=== PATIENT | female | born 1960 | race Caucasian/White ===

== ENCOUNTER 2021-09-06 10:54 | Outpatient (REF) | payer OTHER, SELFPAY ==
--- NOTE | ~2021-09-06 | MM_ITS ---
EXAMINATION: MM SCREENING DIGITAL BREAST TOMOSYNTHESIS, BILATERAL CLINICAL INFORMATION: Screening. Asymptomatic. The lifetime risk of breast cancer based on the Tyrer-Cuzick Model is 6%. COMPARISON: Mammography: 08/31/2020, 08/26/2019, 08/11/2018, 08/07/2017 TECHNIQUE: Digital breast tomosynthesis is performed in both the craniocaudal and mediolateral oblique views along with computer-aided detection (CAD). Synthesized 2D images are generated from the tomosynthesis. FINDINGS: The breasts are heterogeneously dense, which may obscure small masses (ACR BI-RADS breast composition Category c). Parenchymal pattern is similar to prior studies. There is no interval mass or architectural abnormality or developing density. Minor asymmetries are stable. There are no abnormal calcifications. Sternalis muscle partly imaged in [id number] posterior medial left breast on CC projection is similar to 2017. The axilla and skin contours are unremarkable. MM/MM tomosynthesis screening BI IMPRESSION: No significant changes from prior studies. ASSESSMENT: BI-RADS 2: Benign RECOMMENDATION: Routine annual mammography screening. This patient's information was entered into a reminder system with a target due date for their next mammogram.
== END 2021-09-06 10:55 | disposition home or self-care (01) ==
LOC: HO.MAMMO 10:54
PROVIDERS: PCP Obstetrics & Gynecology; Visit Provider Obstetrics & Gynecology
DX: Z12.31 Encounter for screening mammogram for malignant neoplasm of breast (principal)
CPT/HCPCS: 77063; 77067

== ENCOUNTER 2022-09-13 12:01 | Outpatient (REF) | payer OTHER, SELFPAY ==
--- NOTE | ~2022-09-13 | MM_ITS ---
EXAMINATION: MM SCREENING DIGITAL BREAST TOMOSYNTHESIS, BILATERAL CLINICAL INFORMATION: Screening. Asymptomatic. The lifetime risk of breast cancer based on the Tyrer-Cuzick Model is 5.1%. COMPARISON: Mammography: September 06, 2021 and studies dating back to June 11, 2012 TECHNIQUE: Digital breast tomosynthesis is performed in both the craniocaudal and mediolateral oblique views along with computer-aided detection (CAD). Synthesized 2D images are generated from the tomosynthesis. FINDINGS: The breasts are heterogeneously dense, which may obscure small masses (ACR BI-RADS breast composition Category c). There are no new significant masses, abnormal calcifications, or other abnormalities. MM/MM tomosynthesis screening BI IMPRESSION: No significant changes from prior exam. ASSESSMENT: BI-RADS 1: Negative RECOMMENDATION: Routine annual mammography screening. This patient's information was entered into a reminder system with a target due date for their next mammogram.
== END 2022-09-13 12:02 | disposition home or self-care (01) ==
LOC: HO.MAMMO 12:01
PROVIDERS: Visit Provider Obstetrics & Gynecology
DX: Z12.31 Encounter for screening mammogram for malignant neoplasm of breast (principal)
CPT/HCPCS: 77063; 77067

== ENCOUNTER 2022-12-06 08:33 | Outpatient (REF) | payer OTHER, SELFPAY ==
[2022-12-06 11:21] LABS: MANUAL DIFF FLAG NO
[2022-12-06 11:41] LABS: Eosinophils Absolute Auto 0.1 X10*3/uL (0.0-0.4); Hematocrit 40.5 % (37.0-47.0); Hemoglobin 13.2 g/dl (12.0-16.0); Imm Gran Abs Auto 0.01 X10*3/uL (0.00-0.03); Imm Gran Pct Auto 0.2 % (0.0-0.4); Lymphocytes Absolute Auto 1.9 X10*3/uL (1.2-4.9); Lymphocytes Percent Auto 45.6 % (20-40); Mean Corpuscular HGB Conc 32.6 g/dl (31.0-35.0); Mean Corpuscular Hemoglobin 30.6 pg (27.0-33.0); Mean Platelet Volume 11.4 fL (9.4-12.3); Monocytes Absolute Auto 0.3 X10*3/uL (0.1-1.2); Monocytes Percent Auto 7.4 % (2-11); Neutrophils Absolute Auto 1.8 x10*3/uL (2.0-8.3); Neutrophils Percent Auto 43.8 % (45-73); Platelet Count 236 X10*3/uL (160-400); Red Blood Count 4.31 X10*6/uL (4.20-5.50); Red Cell Distribution Width 12.7 % (11.0-16.0); White Blood Count 4.1 X10*3/uL (4.8-10.8)
[2022-12-06 12:01] LABS: C Reactive Protein 0.06 mg/dL (< or = 0.50)
[2022-12-06 12:21] LABS: Alanine Aminotransferase 12 U/L (0-31); Albumin Level 4.4 g/dL (3.5-5.0); Alkaline Phosphatase 74 U/L (39-117); Anion Gap 13 (12-20); Aspartate Amino Transferase 13 U/L (5-31); Bilirubin Total 0.7 mg/dL (0.0-1.0); Blood Urea Nitrogen 15 mg/dL (9-16); Calcium 10.3 mg/dL (8.4-10.2); Carbon Dioxide 28 mmol/L (22-29); Chloride 107 mmol/L (96-108); Cholesterol 246 mg/dL; Estimated Glomerular Filt Rate > 60; Glucose Fasting 105 mg/dL (60-99); HDL Cholesterol 70 mg/dL; LDL Cholesterol Calculated 161 mg/dl; Potassium 4.8 mmol/L (3.3-5.1); Sodium 143 mmol/L (135-145); Total Protein 6.8 g/dL (6.5-8.0); Triglycerides 77 mg/dL
[2022-12-06 12:24] LABS: TSH reflex Free T4 3.37 uIU/mL (0.32-4.0)
[2022-12-06 12:29] LABS: Erythrocyte Sedimentation Rate 7 MM/HR (0-20)
== END 2022-12-06 08:34 | disposition home or self-care (01) ==
LOC: HO.HMGCLDS 08:33
PROVIDERS: Ophthalmology; PCP Internal Medicine; Visit Provider Internal Medicine
DX: Z00.01 Encounter for general adult medical examination with abnormal findings (principal); M85.88 Other specified disorders of bone density and structure, other site; H53.9 Unspecified visual disturbance
CPT/HCPCS: 36415; 80053; 80061; 82306; 84443; 85025; 85652; 86140

== ENCOUNTER 2022-12-17 13:42 | Outpatient (AMB) | payer OTHER, SELFPAY ==
--- NOTE | 2022-12-17 14:08 | A.OFFPC_ITS ---
Vital Signs 12/17/22 14:17 Height 5 ft 5 in Weight 126 lb BMI 20.9 BP 110/68 Blood Pressure Location Lt brachial Position Sitting Pulse 65 Pulse Source Pulse Oximeter Pulse Oximetry (%) 99 Oxygen Delivery Method Room Air Intake Visit Reasons: Anxiety Intake Note: Pt is here today c/o anxiety Allergies sulfamethoxazole [From Bactrim] Allergy (Severe, Verified 12/11/23 13:05) Unknown trimethoprim [From Bactrim] Allergy (Severe, Verified 12/11/23 13:05) Unknown Sulfa (Sulfonamide Antibiotics) [SULFA (SULFONAMIDE ANTIBIOTICS)] Allergy (Intermediate, Verified 12/11/23 13:05) SWELLING nitrofurantoin Adverse Reaction (Unknown, Verified 12/11/23 13:05) Unknown Medication List - Last Reconciled 12/17/22 by Lory Damon MD biotin 1 mg PO DAILY clonazepam 1 mg PO BEDTIME cyclosporine 0.05% 1 drp ophthalmic (eye) BID zolpidem 5 mg PO BEDTIME PRN Tobacco use date assessed: 12/17/22 HPI HPI Comments History of Present Illness Details 63-year-old lady here today complaining of worsening anxiety attacks, has not been able to sleep, feels on edge all the time and constantly worries about everything. She is currently taking clonazepam which has afforded only temporary relief. Zolpidem does not help anymore with sleep. Has been awake now for at least 3 days. [facility] Medical History (Updated 12/25/23 @ 00:20 by Lory Damon MD) History of orthostatic hypotension History of electroconvulsive therapy History of major depression Hypotension Generalized anxiety disorder Family history of melanoma Vision changes Osteopenia of lumbar spine History of uterine fibroid History of anxiety History of depression Surgical History Hx of colonoscopy History of vaginal hysterectomy Family History Father Cardiovascular disease Mother Melanoma, Onset Age: 81 Brother Mental health disorder Social History Household Members: None Housing: Apartment Patient Tobacco Use Status: Never used Tobacco e-Cigarette/Vaping Use: Never Used service: No Current occupational status: employed Cognitive needs: No Hearing needs: No Vision needs: Yes Questionnaire Thrive Questionnaire Date Thrive assessed: 12/05/22 DIAMOND-7 AMB Questionnaire DIAMOND-7 Date DIAMOND - 7 assessed: 12/17/22 Feeling nervous, anxious, or on edge: 3 = Nearly every day Not being able to stop or control worryin = Nearly every day Worrying too much about different things: 3 = Nearly every day Trouble relaxin = Nearly every day Being so restless that it is hard to sit still: 3 = Nearly every day Becoming easily annoyed or irritable: 0 = Not at all Feeling afraid as if something awful might happen: 3 = Nearly every day Total DIAMOND-7 score (0-4 normal; 5-9 mild; 10-14 moderate; 15-21 severe): 18 Source: Developed by Drs. Preet Conrad, Myriam Srinivasan, Salty Stanton and colleagues, with an educational robert from [employer]. DIAMOND-7 Assessment Billing DIAMOND-7 Assessment Tool: DIAMOND-7 Assessment 52877 Review of Systems Const Denies body aches, Denies fatigue, Denies fever(s), Denies headache(s), Denies malaise and Denies snoring Eyes Reports as per HPI ENT Denies dizziness, Denies headache(s) and Denies disequilibrium Card Denies chest pain, Denies syncope, Denies rapid heart rate, Denies irregular heart rhythm, Denies leg edema, Denies lightheadedness and Denies dyspnea Resp Denies cough, Denies dyspnea and Denies snoring GI Denies abdominal pain, Denies change in bowel habits, Denies change in stool character and Denies heartburn Reports no additional complaints Musc Reports no additional complaints Skin/Breast Denies rash Neuro Denies dizziness, Denies syncope, Denies headache(s), Denies seizure-like activity and Denies disequilibrium Psych Reports as per HPI Endo Reports no additional complaints and Denies fatigue Brent/Lymph Reports no additional complaints Aller/Immun Reports no additional complaints Physical exam (Primary Care) Vital Signs: Last Vital Signs Pulse 65 12/17/22 14:17 BP 110/68 12/17/22 14:17 Pulse Ox 99 12/17/22 14:17 Oxygen Delivery Method Room Air 12/17/22 14:17 BMI result Body Mass Index 20.9 Tobacco/Smoking Status: Tobacco use Status Tobacco use date assessed 12/17/22 12/17/22 14:10 Patient Tobacco Use Status Never used Tobacco 12/17/22 14:10 e-Cigarette/Vaping Use Never Used 12/17/22 14:10 Thrive Assessment: Date of Thrive Assessment Date Thrive assessed 12/05/22 12/17/22 14:10 Const General: comfortable, no acute distress, alert and awake Orientation/consciousness: patient oriented x3 HENMT Face and sinus: Yes face symmetric Mouth: moist mucous membranes Eyes General: appearance normal, both eyes and all related structures Neck Neck: Yes full ROM, Yes no lymphadenopathy and Yes supple Thyroid: Thyroid normal Chest Breast/axilla palpation: normal palpation of the breasts Resp Auscultation: clear to auscultation bilaterally Cardio Other: S1-S2 present, regular rate and rhythm GI Inspection: Yes normal to inspection Palpation (GI): Soft to palpation, nontender, no guarding and no masses Auscultation: normal bowel sounds General: Yes deferred Skin General skin exam: no rashes or lesions noted Neuro General: patient oriented x3, gait normal, tone normal, moves all extremities, Normal light touch and pain sensation, no focal motor deficits and CN's II-XI intact bilaterally Gait exam (Neuro): Normal gait present Extrem General: Yes full ROM, Yes no joint enlargement, Yes no clubbing, cyanosis or edema, Yes no calf tenderness and Yes normal gait Psych Appearance: grossly normal and well kempt Mental Status: mental status grossly normal Speech and movement: Normal speech and movement present Affect: Anxious affect present Attitude: cooperative Thought process: Normal thought process present Thought content: Normal thought content present Assessment and Plan Assessment & Plan (1) Generalized anxiety disorder: Code(s): F41.1 - Generalized anxiety disorder Plan: Started on buspirone 5 mg per tablet to take 1 tablet 3 times a day, prescriptio n also sent for trazodone 100 mg to take at bedtime as needed for insomnia, stop zolpidem and clonazepam. Referred to our [facility] for assistance in getting in to see a therapist and psychiatry. Schedule appointment for follow-up in 4 weeks Medications: New buspirone 5 mg PO TID 90 tabs 0RF F41.1 - Generalized anxiety disorder trazodone 100 mg PO BEDTIME PRN 14 tabs 0RF sleep Discontinued zolpidem Discontinued Reason: Doctor's Order 5 mg PO BEDTIME PRN 7 tabs 0RF sleep clonazepam administer 30 minutes before bedtime Discontinued Reason: Doctor's Order 1 mg PO BEDTIME 2 tabs 0RF Coding Level of Care Code Est Pt Level 3 (08822) Diagnoses Generalized anxiety disorder F41.1 Additional Codes DIAMOND-7 Assessment Billing - DIAMOND-7 Assessment Tool: DIAMOND-7 Assessment 03628 ([id number])
[2022-12-17 14:17] VITALS: BP 110/68; PULSE 65; O2SAT 99; BMI 20.9
== END 2022-12-17 15:22 | disposition home or self-care (01) ==
LOC: HO.HMGC 13:42
PROVIDERS: PCP Internal Medicine; Visit Provider Internal Medicine
DX: F41.1 Generalized anxiety disorder (principal)
CPT/HCPCS: 96127; 99213

== ENCOUNTER 2023-01-15 09:30 | Outpatient (RCR) | payer OTHER, SELFPAY ==
[2023-01-08 14:03] VITALS: BP 118/67; PULSE 72; TEMP 37.2
--- NOTE | 2023-01-08 14:03 | PC.ADMIT ---
Patient is a 62 year old single female who was referred to [facility] by her therapist d/t increased depression and anxiety sxs including poor appetite with weight loss of 10 lbs since the beginning of December and poor sleep. She has not been working since the onset of symptoms and fears she will lose her job. 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 Her mother and friend have been helping her financially and emotionally. Patient reports rumination thinking she will never get better and thinking the worse will happen. Worried she will lose everything. She stated she has not been on medication for 6 years. Recently went to respite and was prescribed medications. Stated her therapist is helping her get a prescriber and has an appointment for a consultation on January 25, 2023. Patient presented with depressed mood and anxious affect. She is oriented x4. Calm and cooperative. Denied SI or thoughts to harm herself. Patient given a copy of her safety plan if needed. Medications reconciled with patient and patient's pharmacy. Reports taking medications as prescribed.
[2023-01-08 14:06] VITALS: BMI 21.2
--- NOTE | 2023-01-08 15:22 | HO.PS.ADMBH ---
[facility] Date of Service: 01/08/23 Chief Complaint: depression, anxiety,OCD Sources of Information: patient interviewed, chart reviewed and crisis/core team assessment reviewed HPI Medical Problems Affecting Mental Status: No Narrative: Patient is a 62-year-old female, referred to [facility] by her outpatient therapist, due to increased symptoms of depression, anxiety, and insomnia, since late November 2022. Precipitant to this was experiencing unexpected blurry vision. She became extremely worried, went to the emergency room and eye doctor, with no clear explanation of symptoms. Was ultimately diagnosed with dry eye syndrome, and has been started with Restasis eye drops. She began to worry, which turned in to recurrence of depressive disorder, OCD, sleep disturbance. Reports passive SI, no intent or plan. Patient has been in this program in the past, in 2017. At that time she was found to have similar symptoms, after stressful life events. She was treated at that time with mirtazapine and lorazepam, with positive effect. She states that after discharge from here, she later was admitted to [facility] in [facility], and was then stable for 5 years. During that time she had weaned herself off of psychiatric medications, and had been doing well. She describes having years at a time where her mood is stable. 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 She says that every 5 or 6 years over the past 10 years or so she has had an episode with increased depression, OCD type symptoms, and insomnia. During these times she becomes consumed with worry and depression, days without sleep. Her current excessive worries focused on concerns about being ill, growing old, losing her job, losing her cats and department. Also reports recent intrusive sexual thoughts, describes them as repulsive. Patient was recently in respite through [facility], in [place], admitted on 12/25/22. She reports at that time she was having intrusive thoughts, described them as voices, due to excessive OCD symptoms. She also had insomnia, increased anxiety and depression. During that time she was placed on multiple medications, including Abilify, trazodone, BuSpar, Zoloft, Klonopin, quetiapine. She reports sleeping lessen 5 hours per night at this time. Waking up at 03:15 every morning. She currently has a friend staying with her, who is an RN. She describes friend, as well as her own mother as supportive. Her mother is currently helping her financially due to being unable to work while experiencing symptoms. Past Psychiatric History: [facility] in [address] [facility] 2017, SI attempt overdose with Tylenol, Aleve, Seroquel, Robitussin. Outpatient therapist: Johnny Trials: samson Warren not AH, mirtazapine, trazodone, BuSpar Medical Evaluation Reviewed: Yes PMFSH Medical History Family history of melanoma Generalized anxiety disorder History of anxiety History of depression History of uterine fibroid Osteopenia of lumbar spine Vision changes Surgical History History of vaginal hysterectomy Hx of colonoscopy Family History: Anxiety. Younger half-sibling: Schizophrenia Social History: Single, lives alone. 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 Parents when she was 7 or 8. Has 1 older brother. Father had 2 sons with 2nd marriage. Met developmental milestones, did well in school. Graduated college. Substance History: Occasional alcohol Trauma History: None Diagnostics Vital Signs (24Hr): Vital Signs - 24 hr 01/08/23 14:03 Temperature 98.9 F Pulse Rate 72 Blood Pressure 118/67 BMI result Body Mass Index 21.2 Meds/Allergies Meds Home Medications Medication Instructions Recorded Confirmed Type biotin 1 mg tablet 1 mg PO DAILY 12/05/22 01/08/23 History cyclosporine 0.05 % eye drops in a 1 drp ophthalmic (eye) BID 12/17/22 01/08/23 History dropperette clonazepam 1 mg tablet 1 mg PO BEDTIME 01/03/23 01/08/23 History Allergies Allergies Allergy/AdvReac Type Severity Reaction Status Date / Time Sulfa (Sulfonamide Allergy Intermediate SWELLING Verified 01/03/23 11:33 Antibiotics) [SULFA (SULFONAMIDE ANTIBIOTICS)] nitrofurantoin AdvReac Unknown Unknown Verified 01/03/23 11:33 Mental Status Exam Mental Status Exam Narrative: Well-developed, well-nourished female, in NAD. Normal ambulation, no cogwheeling or rigidity noted. Well groomed, appropriately dressed. Fully engaged during interview. No perceptual disturbances, no evidence of any type of psychotic thought process observed. Patient Appearance: Well Grooomed Patient Orientation: Person, Place, Time and Situation Level of Consciousness: Appropriate and Alert Patient Behavior: Appropriate, Cooperative, Anxious and Good Eye Contact Affect Description: Depressed and Anxious Patient Cognition Impaired: No Ability to Follow Directions: Excellent Speech Pattern: Clear Memory Description: Intact Hallucinations: None Delusions: Not Present Thought Process: Intact and Rumination Thought Content: positive for Obsessional Thoughts and positive for Suicidal Ideation (passive, no intent/plan) Depressive Symptoms: Increased Anxiety, Insomnia, Diff. Making Decisions, Loss of Int. in Activity, Increased Fatigue, Thoughts of /Suicide (passive) and Difficulty Concentrating Judgement: Fair Assessment & Plan Assessment & Plan (1) MDD (major depressive disorder), recurrent episode, severe: Status: Acute Code(s): F33.2 - Major depressive disorder, recurrent severe without psychotic features Assessment and Plan: Patient has had episodes in the past approximately every 5-6 years of supply fear depression, with exacerbation of OCD type anxiety symptoms. Has had trials of medications in the past, did well with mirtazapine and lorazepam while here in partial in 2017. Has a history of stopping medications once stable, with high functioning for years at a time. We discussed current medication regimen. Patient currently is receiving Abilify 15 mg daily, quetiapine 150 mg at bedtime, Klonopin 1 mg at bedtime, Zoloft 25 mg. She was started with trazodone recently, and stopped due to dry mouth. She also was started with BuSpar, but stopped taking it. Has also tried Ambien recently, stopped because ?it does not work ?. Reports intrusive thoughts have stopped, but continues with symptoms of depression, passive SI (no intent/plan, feels safe), OCD type thoughts, including intrusive sexual thoughts, excessive worry. Poor sleep continues, sleeping approximately 4-5 hours per night. We discussed making several medication changes. Discussed wean off of Abilify. Discussed changing quetiapine to long-acting. Discussed keeping Klonopin. Also discussed increasing Zoloft to 50 mg at this time. Discussion included rationale of each recommendation, indications, risks including both adverse effects serious and common, benefits, and alternatives of treatment recommendations. She demonstrated her understanding, and after asking appropriate questions that were answered to her satisfaction, she was agreeable to these changes. (2) OCD (obsessive compulsive disorder): Status: Acute Code(s): F42.9 - Obsessive-compulsive disorder, unspecified (3) Sleep disturbance: Status: Acute Code(s): G47.9 - Sleep disorder, unspecified Plan 1. Continue with current [facility] plan of care. 2. Medication changes as follows: Decrease aripiprazole to 10 mg daily x5 days, then decrease to 5 mg daily x5 days. Continue with clonazepam 1 mg at bedtime p.r.n. for sleep/anxiety. Add Melatonin 1-3mg at bedtime. Quetiapine changed to extended release 150mg, to be taken 3 hours prior to bedtime. Increase sertraline to 50mg daily. 3. Obtain lab work. 4. Follow-up as per protocol. Patient educated on: diagnosis, medication risk/benefits and therapeutic strategies Informed Consent: understands Reason for continued partial hosp. stay Substantial Risk for: harm to self, inability to function and rapid decompensation Certification I certify that partial hospital treatment is medically necessary due to the symptoms and problems resulting from the patient's mental illness and the failure to treat the patient at the partial hospital level of care would likely result in the patient requiring inpatient psychiatric care which could not be prevented at a less intensive level of care. Time Spent With Patient Time: Total time managing care of this patient today ___60_ minutes.
--- NOTE | 2023-01-11 07:58 | HO.PHP ---
The clients case was reviewed and opened in treatment team
--- NOTE | 2023-01-11 11:24 | P.PNPSP_ITS ---
Subjective Subjective Date of Service: 01/11/23 Reason For Visit: depression, anxiety,OCD Medical Problems Affecting Mental Status: No Interim History: Continues with anxiety, poor sleep, depression. Sleeping 4-5 hours per night. No SI reported, no safety concerns. Requesting leave paperwork to be completed and sent. Medication Compliance: Intermittent Side effects from medications: Yes (Says long-acting Seroquel causing nightmare type thoughts upon awakening.) Attending Groups: No Review of Systems Acute medical concerns: No Medical Review of Systems: unchanged Review of Systems Review of Systems Yes all other systems are reviewed and are negative Constitutional: Reports no additional constitutional complaints Mental Status Exam Mental Status Exam Patient Appearance: Appropriate Patient Orientation: Person, Place, Time and Situation Level of Consciousness: Appropriate and Alert Patient Behavior: Appropriate, Cooperative and Anxious Mood Description: Depressed and Anxious Affect Description: Depressed and Anxious Patient Cognition Impaired: No Ability to Follow Directions: Good Speech Pattern: Clear Memory Description: Intact Hallucinations: None Delusions: Not Present Thought Process: Intact and Rumination Thought Content: positive for Obsessional Thoughts Depressive Symptoms: Increased Anxiety, Insomnia, Diff. Making Decisions, Loss of Int. in Activity, Increased Fatigue and Difficulty Concentrating Judgement: Fair Diagnostics Vital Signs (24Hr): BMI result Body Mass Index 21.2 Assessment & Plan Assessment & Plan (1) MDD (major depressive disorder), recurrent episode, severe: Status: Acute Code(s): F33.2 - Major depressive disorder, recurrent severe without psychotic features Assessment and Plan: Continues with depressed, anxious mood affect. No SI at this time, no safety concerns. Continues focusing on sleep, lack of it. States that she is going to bed at 22:00, waking up between 03:15 and 04:15, unable to fall back asleep. Reports that she is sleeping approximately 4-5 hours per night, but that normally she sleeps 8 hours per night. Has taking the long-acting Seroquel for 2 nights, states that she does not like it, that when she wakens she has thoughts like nightmares. We discussed bedtime regimen. No caffeine past morning, no exercise at night, no cell phone use at night. Discussed having chamomile or sleepy time tea when she wakens between 3 and 04:00, and try to rest until morning. Reports she is taking Klonopin as prescribed at night, along with melatonin 3 mg. 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 Discussed continue with long-acting Seroquel at this time, to try for several more days over weekend. Discussed increase of melatonin to between 5 and 10 mg at night. Reviewed medications in detail, including side effects, indications of use, alternatives of treatment. 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 (4) Sleep disturbance: Status: Acute Code(s): G47.9 - Sleep disorder, unspecified Plan 1. Continue with current [facility] plan of care. 2. Continue with quetiapine 150 mg extended release. 3. Increase melatonin to 5-10 mg at night for sleep. 4. Continue with other medications as currently prescribed. 5. Unemployment/leave paperwork completed, fax, copy given to patient. 6. Follow up as per protocol Patient educated on: diagnosis, medication risk/benefits and therapeutic strategies Informed Consent: understands Reason for contiued partial hosp. stay Substantial Risk for: inability to function, rapid decompensation and med/psych decompensation Certification I certify that partial hospital treatment is medically necessary due to the symptoms and problems resulting from the patient's mental illness and the failure to treat the patient at the partial hospital level of care would likely result in the patient requiring inpatient psychiatric care which could not be prevented at a less intensive level of care. Total time managing care of this patient today _20___ minutes. Discharge Plan Discharge Attending provider: Matthew Chavez Medications: New aripiprazole 10 mg tablet 10 mg PO DAILY Qty: 5 0RF quetiapine 150 mg tablet extended release 24 hr 150 mg PO BEDTIME Qty: 7 0RF Rx Instructions: Take one tab 3 hours before bedtime sertraline 50 mg tablet 50 mg PO DAILY Qty: 7 0RF melatonin 1 mg tablet See Rx Instructions .ROUTE .COMPLEX PRN (Reason: sleep) Qty: 30 0RF Rx Instructions: Take 1 to 3 tabs at bedtime as needed for sleep aripiprazole 5 mg tablet 5 mg PO DAILY Qty: 5 0RF Rx Instructions: AFTER completion of aripiprazole 10mg daily for 5 days, START aripiprazole 5mg daily for 5 days. clonazepam 1 mg tablet 1 mg PO BEDTIME PRN (Reason: sleep) Qty: 14 0RF Rx Instructions: administer 30 minutes before bedtime Discontinued aripiprazole 15 mg tablet 15 mg PO DAILY quetiapine 100 mg tablet 150 mg PO BEDTIME sertraline 25 mg tablet 25 mg PO DAILY No Action biotin 1 mg tablet 1 mg PO DAILY cyclosporine 0.05 % dropperette 1 drp ophthalmic (eye) BID clonazepam 1 mg tablet 1 mg PO BEDTIME Stand Alone Forms: Patient Portal Discharge page
--- NOTE | 2023-01-14 13:54 | HO.PHPPROGNO ---
Subjective Subjective Date of Service: 01/14/23 Reason For Visit: depression, anxiety,OCD Medical Problems Affecting Mental Status: No Interim History: Continues with poor sleep. Reports slept 2 hours last night. Intrusive, racing thoughts continue, excessive worry. Continues with depression, anxiety. No SI, no safety concerns. Medication Compliance: Intermittent (Has been changing times of bedtime meds, with poor effect.) Side effects from medications: No Attending Groups: Yes Review of Systems Acute medical concerns: No Medical Review of Systems: unchanged Review of Systems Review of Systems Yes all other systems are reviewed and are negative Constitutional: Reports no additional constitutional complaints Mental Status Exam Mental Status Exam Patient Appearance: Appropriate Patient Orientation: Person, Place, Time and Situation Level of Consciousness: Appropriate and Alert Patient Behavior: Appropriate, Cooperative, Anxious and Good Eye Contact Mood Description: Depressed and Anxious Affect Description: Depressed, Anxious and Flat Patient Cognition Impaired: No Ability to Follow Directions: Good Speech Pattern: Clear Memory Description: Episodic Impaired Hallucinations: None Delusions: Not Present Thought Process: Rumination Thought Content: positive for Racing, positive for Obsessional Thoughts and positive for Preoccupation Depressive Symptoms: Increased Anxiety, Insomnia, Diff. Making Decisions, Loss of Int. in Activity, Hopelessness, Unhappiness, Increased Fatigue and Difficulty Concentrating Judgement: Fair Diagnostics Vital Signs (24Hr): BMI result Body Mass Index 21.2 Assessment & Plan Assessment & Plan (1) MDD (major depressive disorder), recurrent episode, severe: Status: Acute Code(s): F33.2 - Major depressive disorder, recurrent severe without psychotic features Assessment and Plan: Continues with depressed mood, intrusive / racing thoughts, poor sleep. Difficulty taking current medications as precisely prescribed. Change the times over the weekend for long-acting Seroquel. Reports only slept 2 hours last night. Indecisive at times, not sure if she should try med changes were continue with current regimen. She does not like the feel of Seroquel, reports that it makes her feel tired during the day. Although intrusive thoughts are troubling, they are not consistent with any type of thoughts of harm to self or others, but more OCD type in nature. No SI/HI, no safety concerns. We discussed symptom management, goals of treatment. Discussed lowering dose of quetiapine, increasing sertraline, continue to taper down Abilify, add doxepin, increase sertraline. Rationale for each recommendtion discussed, including indications, alternatives to treatment. After patient's questions were answered to her satisfaction, she was in agreement with the proposed changes. She also reports she did not take the increased recommendation of melatonin, and did not take the Seroquel 3 hours before bedtime. States that she will do these going forward, as the 1 day she did do so, she did have adequate sleep. Recommended EKG. Patient declined, states she does not feel comfortable going over to the hospital to get one, does not feel comfortable calling her doctor to get one. (2) OCD (obsessive compulsive disorder): Status: Acute Code(s): F42.9 - Obsessive-compulsive disorder, unspecified (3) Sleep disturbance: Status: Acute Code(s): G47.9 - Sleep disorder, unspecified Plan 1. Continue with current [facility] plan of care. 2. Decreased Seroquel extended release to 100mg at bedtime X one week, with plan to lower to 50mg at bedtime afterwards, with plan to either stop or continue at lower dose. 3. After completion of Abilify 5 mg daily, take Abilify 2 mg daily X 5 days, then discontinue. 4. Increase sertraline to 75 mg daily. 5. Start melatonin 5-10 mg at bedtime p.r.n. for sleep. 6. Stop trazodone 7. Start doxepin 3 mg at bedtime p.r.n. for sleep. 8. Follow-up as per protocol. Patient educated on: diagnosis, medication risk/benefits and therapeutic strategies Informed Consent: understands and further education needed Reason for contiued partial hosp. stay Substantial Risk for: inability to function and rapid decompensation Certification I certify that partial hospital treatment is medically necessary due to the symptoms and problems resulting from the patient's mental illness and the failure to treat the patient at the partial hospital level of care would likely result in the patient requiring inpatient psychiatric care which could not be prevented at a less intensive level of care. Total time managing care of this patient today __30__ minutes. Discharge Plan Discharge Attending provider: Matthew Chavez Medications: New aripiprazole 5 mg tablet 5 mg PO DAILY Qty: 5 0RF Rx Instructions: AFTER completion of aripiprazole 10mg daily for 5 days, START aripiprazole 5mg daily for 5 days. aripiprazole [Abilify] 2 mg tablet 2 mg PO DAILY Qty: 5 0RF Rx Instructions: AFTER completion of abilify 5mg X 5 days, then take abilfy 2mg X 5 days. Then discontinue quetiapine 50 mg tablet extended release 24 hr See Rx Instructions .ROUTE .COMPLEX Qty: 21 0RF Rx Instructions: 100 mg orally at bedtime X 7 days, THEN take 50mg orally at bedtime X 7 days. sertraline 50 mg tablet 75 mg PO DAILY Qty: 30 0RF melatonin 5 mg tablet See Rx Instructions .ROUTE .COMPLEX PRN (Reason: sleep) Qty: 60 0RF Rx Instructions: Take 5 to 10mg at night as needed for sleep doxepin 3 mg tablet 3 mg PO BEDTIME PRN (Reason: sleep) Qty: 7 0RF clonazepam 1 mg tablet 1 mg PO BEDTIME PRN (Reason: anxiety / sleep) Qty: 14 0RF Rx Instructions: administer 30 minutes before bedtime Discontinued clonazepam 1 mg tablet 1 mg PO BEDTIME aripiprazole 15 mg tablet 15 mg PO DAILY quetiapine 100 mg tablet 150 mg PO BEDTIME sertraline 25 mg tablet 25 mg PO DAILY No Action biotin 1 mg tablet 1 mg PO DAILY cyclosporine 0.05 % dropperette 1 drp ophthalmic (eye) BID Stand Alone Forms: Patient Portal Discharge page
--- NOTE | 2023-01-16 08:17 | PC.NURSE ---
Birgit called and left a message yesterday stating she will not be in the program as she is checking herself in the hospital. She is unsure which hospital yet but she feels she needs this level of care. A friend of hers is bringing her to the hospital. I called Birgit this morning to f/u. I left a message on her voicemail. [facility] staff is aware.
== END 2023-01-15 23:00 | disposition admitted as inpatient to this hospital (09) ==
LOC: HO.PHPA 09:30
PROVIDERS: Visit Provider Psychiatry & Neurology Psychiatry
DX: F33.2 Major depressive disorder, recurrent severe without psychotic features (principal); F41.1 Generalized anxiety disorder; F42.9 Obsessive-compulsive disorder, unspecified; G47.9 Sleep disorder, unspecified; Z79.899 Other long term (current) drug therapy
CPT/HCPCS: 90791; 90853

== ENCOUNTER → 2023-05-16 13:54 | Outpatient (BNVA) | payer OTHER, SELFPAY | PROVIDERS: Visit Provider Nurse Practitioner | DX: Z01.818 Encounter for other preprocedural examination (principal); I35.8 Other nonrheumatic aortic valve disorders; Z83.71 Family history of colonic polyps | CPT/HCPCS: 99202 ==

== ENCOUNTER 2023-09-19 11:45 | Outpatient (REF) | payer OTHER, SELFPAY ==
--- NOTE | ~2023-09-19 | MM_ITS ---
EXAMINATION: MM SCREENING DIGITAL BREAST TOMOSYNTHESIS, BILATERAL CLINICAL INFORMATION: Screening. Asymptomatic. COMPARISON: Mammography: 09/13/2022, 09/06/2021, 08/31/2020, 08/26/2019, 08/11/2018, 08/07/2017 TECHNIQUE: Digital breast tomosynthesis is performed in both the craniocaudal and mediolateral oblique views along with computer-aided detection (CAD). Synthesized 2D images are generated from the tomosynthesis. FINDINGS: The breasts are heterogeneously dense, which may obscure small masses (ACR BI-RADS breast composition Category c). There are no suspicious masses, suspicious grouped calcifications, or areas of architectural distortion in either breast. The parenchymal pattern is stable from prior exams. There are no skin or axillary changes. MM/MM tomosynthesis screening BI IMPRESSION: No mammographic evidence of malignancy. ASSESSMENT: BI-RADS BI-RADS 1 - Negative RECOMMENDATION: Routine annual mammography screening. 1 year F/U This examination should not preclude the clinical evaluation of a suspicious palpable abnormality. This patient's information was entered into a reminder system with a target due date for their next mammogram.
--- NOTE | ~2023-09-19 | MM_ITS ---
EXAMINATION: BONE DENSITOMETRY CLINICAL INDICATION: Osteopenia. COMPARISON: Baseline BD dated 06/07/2015. TECHNIQUE: Using a [employer] DXA System (software version: 13.1) manufactured by [employer], dual-energy x-ray absorptiometry was performed of the lumbar spine and left hip. The images are of good technical quality. Summary results are attached. FINDINGS: LEFT FEMUR, NECK: Current: BMD 0.856 g/cm2, Z-score 0.1, T-score -1.3, osteopenia. Baseline: BMD 0.988 g/cm2. LEFT FEMUR, TOTAL: Current: BMD 0.802 g/cm2, Z-score -0.5, T-score -1.6, osteopenia, 14.7% decrease from baseline (<5% change is not significant). Baseline: BMD 0.940 g/cm2. AP SPINE L1-L4: Current: BMD 0.939 g/cm2, Z-score -0.5, T-score -2.0, osteopenia, 9.0% decrease from baseline (<5% change is not significant). Baseline: BMD 1.032 g/cm2. IDENTIFIED RISK FACTORS: Menopause, hysterectomy. HISTORY OF FRACTURE: None listed. MEDICATIONS: Vitamin D. MM/XR DEXA axial skeleton IMPRESSION: 1. DIAGNOSIS: Osteopenia based on the lowest T-score value of -2.0 in the lumbar spine applying World Health Organization criteria. 2. 10-YEAR FRACTURE RISK PREDICTION, FRAX: Major osteoporotic fracture (clinical spine, forearm, hip or shoulder) 7.4%. Hip fracture 0.6%. 3. Treatment Recommendations: NOF guidelines recommend consideration for treatment in postmenopausal women and men age 50 and older presenting with the following: -A hip or vertebral (clinical or morphometric) fracture. -T-score less than or equal to -2.5 at the femoral neck or spine after appropriate evaluation to exclude secondary causes. -Low bone mass at the hip or spine and a 10-year fracture probability by FRAX of greater than or equal to 3% for hip fracture or greater than or equal to 20% for major osteoporotic fracture based on the [place] adapted WHO algorithm. 4. Other Recommendations: All treatment decisions require clinical judgment and consideration of individual patient factors, including patient preferences, comorbidities, previous drug use, risk factors not captured in the FRAX model (e.g. frailty, falls, vitamin D deficiency, increased bone turnover, interval significant decline in bone density) and possible under or overestimation of fracture risk by FRAX. Additional medical evaluation for secondary cause of low bone mineral density may be appropriate. FUTURE SCAN RECOMMENDATION: People with diagnosed cases of osteoporosis or at high risk for fracture should have regular bone mineral density tests. For patients eligible for Medicare, routine testing is allowed once every 2 years. The testing frequency can be increased to one year for patients who have rapidly progressing disease, those who are receiving or discontinuing medical therapy to restore bone mass, or have additional risk factors.
== END 2023-09-19 11:46 | disposition home or self-care (01) ==
LOC: HO.MAMMO 11:45
PROVIDERS: PCP Internal Medicine; Visit Provider Internal Medicine
DX: Z12.31 Encounter for screening mammogram for malignant neoplasm of breast (principal); Z13.820 Encounter for screening for osteoporosis; M85.88 Other specified disorders of bone density and structure, other site; Z78.0 Asymptomatic menopausal state
CPT/HCPCS: 77063; 77067; 77080

== ENCOUNTER → 2023-09-19 13:00 | Outpatient (BNV) | payer OTHER, SELFPAY | PROVIDERS: PCP Internal Medicine; Visit Provider Radiology Diagnostic Radiology | DX: Z12.31 Encounter for screening mammogram for malignant neoplasm of breast (principal) | CPT/HCPCS: 77063; 77067 ==

== ENCOUNTER 2023-10-03 09:45 | Outpatient (AMB) | payer OTHER, SELFPAY ==
[2023-10-03 09:49] VITALS: BP 100/64; PULSE 50; BMI 24.2
--- NOTE | 2023-10-03 09:49 | A.OFFVIS_ITS ---
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 Allergies sulfamethoxazole [From Bactrim] Allergy (Severe, Verified 05/16/23 14:02) Unknown trimethoprim [From Bactrim] Allergy (Severe, Verified 05/16/23 14:02) Unknown Sulfa (Sulfonamide Antibiotics) [SULFA (SULFONAMIDE ANTIBIOTICS)] Allergy (Intermediate, Verified 05/09/23 14:11) SWELLING nitrofurantoin Adverse Reaction (Unknown, Verified 05/09/23 13:55) Unknown Medication List - Last Reconciled 10/03/23 by Matthew Joe MD biotin 1 mg PO DAILY cholecalciferol (vitamin D3) 50 mcg PO DAILY multivitamin 1 tab PO DAILY thiamine HCl (vitamin B1) (Vitamin B-1) 100 mg PO DAILY HPI HPI Comments History of Present Illness Details Thank you for referring Birgit in cardiology consultation today for management of orthostatic hypotension. She is very cheerful 62-year-old woman who was admitted for 3 months for psych related issue and subsequently underwent ECT at [facility]. She was on lot of psychiatric medication at that point time she had significant low blood pressure and orthostatic symptoms. She was advised salt intake at that time. However she is not currently off all psychoactive medications and off salt intake and her symptoms have improved a blood pressures improved. 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 She does not tend to drink enough fluids in today. She also does not have enough salt. She denies any full syncopal episodes. [facility] Medical History Hypotension Generalized anxiety disorder Family history of melanoma Vision changes Osteopenia of lumbar spine History of uterine fibroid History of anxiety History of depression Surgical History Hx of colonoscopy History of vaginal hysterectomy Family History Father Cardiovascular disease Mother Melanoma, Onset Age: 81 Brother Mental health disorder Social History Household Members: None Housing: Apartment Patient Tobacco Use Status: Never used Tobacco e-Cigarette/Vaping Use: Never Used Current occupational status: employed Cognitive needs: No Hearing needs: No Vision needs: Yes Review of Systems Const Denies chills, Denies daytime sleepiness, Denies fatigue, Denies fever(s), Denies frequent falls, Denies poor appetite, Denies snoring, Denies stops breathing during sleep, Denies weakness, Denies weight gain and Denies weight loss Eyes Denies loss of vision ENT Denies dizziness and Denies hearing loss Card Denies chest pain, Denies claudication, Denies leg edema, Denies lightheadedness, Denies palpitations, Denies dyspnea, Denies dyspnea on exertion and Denies orthopnea Resp Denies cough, Denies excessive phlegm production, Denies dyspnea, Denies dyspnea on exertion, Denies snoring and Denies wheezing GI Denies abdominal pain, Denies hematochezia, Denies change in bowel habits, Denies nausea and Denies vomiting Denies urinary frequency and Denies dysuria Musc Denies arthralgias, Denies muscle weakness, Denies numbness and Denies other (frequent falls) Skin/Breast Denies nail changes and Denies rash Neuro Denies Abnormal speech present, Denies dizziness, Denies frequent falls, Denies loss of vision, Denies memory loss, Denies numbness and Denies weakness Psych Denies depression and Denies memory loss Endo Denies fatigue and Denies palpitations Brent/Lymph Reports easy bruising and Reports other (anemia) Aller/Immun Denies wheezing Physical Exam Vital Signs: Last Vital Signs Pulse 50 10/03/23 10:10 BP 92/61 10/03/23 10:10 BMI result Body Mass Index 24.2 Const General: cooperative, comfortable, no acute distress, alert, awake and Physically active Nutritional Appearance: thin Orientation/consciousness: patient oriented x3 Limitations: no limitations HEENT Head: Yes normocephalic and Yes atraumatic Neck Neck: Yes trachea midline, Yes supple and Yes no JVD Resp Effort & Inspection: normal respiratory effort Auscultation: clear to auscultation bilaterally Cardio Jugular venous distension: no JVD Palpation: normal PMI Rate: regular rate Rhythm: regular rhythm Heart sounds: S1 normal heart sound present, S2 normal heart sound present, no click, no gallops, no murmurs and no rubs GI Auscultation: normal bowel sounds Skin General skin exam: no rashes or lesions noted Neuro General: patient oriented x3 and no focal motor deficits Speech: No Abnormal speech present Extrem General: Yes no clubbing, cyanosis or edema Psych Appearance: grossly normal Office Procedures EKG Details: EKG shows sinus bradycardia 50 beats per minute otherwise normal EKG [id number], Complete Assessment & Plan Assessment & Plan (1) Hypotension: Code(s): I95.9 - Hypotension, unspecified Plan: Orthostatic hypertension related to psychoactive medication and optimal fluid and salt intake. She might have tendency for dysautonomia. However today she does not have any evidence of orthostatic hypertension. Advised to maintain adequate hydration and salt intake on a regular basis. Signs and symptoms of orthostatic hypertension and management of this was discussed. Orthostatic precautions discussed. She understands them well. In future if she require psychoactive medications, may require closer follow-up in regards to hypotension. Will sign of the case at this point time. Thank you for allowing me to partake in her care Coding Level of Care Code New Pt Level 3 (37907) Diagnoses Hypotension I95.9 CPT Codes EKG - CPT: 54539-[id number], Complete ([id number])
[2023-10-03 10:10] VITALS: BP 92/61; PULSE 50
[2023-10-03 10:13] VITALS: BP 102/71; PULSE 58
[2023-10-03 10:15] VITALS: BP 110/73; PULSE 67
== END 2023-10-03 10:29 | disposition home or self-care (01) ==
PROVIDERS: PCP Internal Medicine; Visit Provider Internal Medicine Cardiovascular Disease
DX: I95.9 Hypotension, unspecified (principal)
CPT/HCPCS: 93010; 99203

== ENCOUNTER → 2023-10-03 09:45 | Outpatient (BNVA) | payer OTHER, SELFPAY | PROVIDERS: PCP Internal Medicine; Visit Provider Internal Medicine Cardiovascular Disease | DX: I95.9 Hypotension, unspecified (principal) | CPT/HCPCS: 93005; 99202 ==

== ENCOUNTER 2023-12-11 12:41 | Outpatient (AMB) | payer OTHER, SELFPAY ==
--- NOTE | 2023-12-11 12:45 | A.OFFPC_ITS ---
Vital Signs 12/11/23 12:46 Weight 139 lb BP 118/76 Blood Pressure Location Rt brachial Position Sitting Pulse 70 Pulse Source Pulse Oximeter Pulse Oximetry (%) 98 Oxygen Delivery Method Room Air Intake Visit Reasons: Annual PE Intake Note: Patient here for physical exam. pt states she would like to get a referral to Derm. Colonoscopy is booked jan 10 Mammo: 08/2023 Allergies sulfamethoxazole [From Bactrim] Allergy (Severe, Verified 12/11/23 13:05) Unknown trimethoprim [From Bactrim] Allergy (Severe, Verified 12/11/23 13:05) Unknown Sulfa (Sulfonamide Antibiotics) [SULFA (SULFONAMIDE ANTIBIOTICS)] Allergy (Intermediate, Verified 12/11/23 13:05) SWELLING nitrofurantoin Adverse Reaction (Unknown, Verified 12/11/23 13:05) Unknown Medication List - Last Reconciled 12/11/23 by Lory Damon MD biotin 1 mg PO DAILY cholecalciferol (vitamin D3) 50 mcg PO DAILY multivitamin 1 tab PO DAILY thiamine HCl (vitamin B1) (Vitamin B-1) 100 mg PO DAILY Tobacco use date assessed: 12/11/23 Dental Screening Dental Screen Date: 12/11/23 Did you have a dental visit in the last 12 months?: Yes Did you have a dental problem in the last 6 months where you did not have access to dental care?: No Was dental information given to patient?: Patient has dentist HPI Annual PE HPI Details 63-year-old lady here today for physical exam. She has history of depression and anxiety with panic attacks and obsessive compulsive disorder, was [facility] months last year and was on multiple psychoactive medications which has not afforded any improvement and and she also developed orthostatic hypotension. She underwent ECT March 2023 with good results. 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 She is up-to-date with her screening mammogram, has osteopenia and multiple sites as noted on bone density done September 2023. She has an shayla ointment for her screening colonoscopy on 08/21/2024 already scheduled. She has been feeling well overall, with no other complaints at present time. [facility] Medical History (Updated 12/25/23 @ 00:20 by Lory Damon MD) History of orthostatic hypotension History of electroconvulsive therapy History of major depression Hypotension Generalized anxiety disorder Family history of melanoma Vision changes Osteopenia of lumbar spine History of uterine fibroid History of anxiety History of depression Surgical History Hx of colonoscopy History of vaginal hysterectomy Family History Father Cardiovascular disease Mother Melanoma, Onset Age: 81 Brother Mental health disorder Social History Household Members: None Housing: Apartment Patient Tobacco Use Status: Never used Tobacco e-Cigarette/Vaping Use: Never Used service: No Current occupational status: employed Cognitive needs: No Hearing needs: No Vision needs: Yes Questionnaire PHQ-9 Over the last 2 weeks, how often have you been bothered by any of the following problems? 1. Little interest or pleasure in doing things: not at all 2. Feeling down, depressed, or hopeless: not at all 3. Trouble falling or staying asleep, or sleeping too much: several days 4. Feeling tired or having little energy: not at all 5. Poor appetite or overeating: not at all 6. Feeling bad about yourself - or that you are a failure or have let yourself or your family down: not at all 7. Trouble concentrating on things, such as reading the newspaper or watching television: not at all 8. Moving or speaking so slowly that other people could have noticed. Or the opposite - being so fidgety or restless that you have been moving around a lot more than usual: not at all 9. Thoughts that you would be better off or of hurting yourself in some way: not at all Total score: 1 Depression Screening Interpretation: Negative Depression Screening Done: Yes 67006 - PHQ-9 Billing: Yes Source: Developed by Drs. Preet Conrad, Myriam Srinivasan, Salty Stanton and colleagues, with an educational robert from [employer]. Thrive Questionnaire Date Thrive assessed: 12/11/23 I am a: Patient What is your living situation today?: I have a steady place to live Within the past 12 months, did the food you bought not last and you didn't have the money to get more?: Never true Within the past 12 months, did you worry whether your food would run out before you got money to buy more?: Never true Do you have trouble paying for medicines?: No Do you have trouble getting transportation to medical appointments?: No Do you have trouble paying your heating and electricity bill?: No Do you have trouble taking care of your child, family member or friend?: No Do you have trouble with day-to-day activities such as bathing, preparing meals, shopping, managing finances, etc.?: No Are you currently unemployed and looking for a job?: No Are you interested in more education?: No Please select the resources that you would like help with: None Currently or been in a relationship where the following occur: no concerns reported AUDIT C Alcohol Use Questionnaire (AUDIT-C) 1. How often do you have a drink containing alcohol?: Never Total Score: 0 DIAMOND-7 AMB Questionnaire DIAMOND-7 Date DIAMOND - 7 assessed: 12/11/23 Feeling nervous, anxious, or on edge: 0 = Not at all Not being able to stop or control worryin = Several days Worrying too much about different things: 1 = Several days Trouble relaxin = Not at all Being so restless that it is hard to sit still: 0 = Not at all Becoming easily annoyed or irritable: 0 = Not at all Feeling afraid as if something awful might happen: 0 = Not at all Total DIAMOND-7 score (0-4 normal; 5-9 mild; 10-14 moderate; 15-21 severe): 2 Source: Developed by Drs. Preet Conrad, Myriam Srinivasan, Salty Stanton and colleagues, with an educational robert from [employer]. DIAMOND-7 Assessment Billing DIAMOND-7 Assessment Tool: DIAMOND-7 Assessment 28126 Review of Systems Const Denies chills, Denies daytime sleepiness, Denies fatigue, Denies fever(s) and Denies weakness Eyes Denies change in vision ENT Reports no additional complaints Card Denies chest pain, Denies claudication, Denies leg edema, Denies lightheadedness, Denies palpitations, Denies dyspnea and Denies dyspnea on exertion Resp Denies cough, Denies dyspnea, Denies dyspnea on exertion and Denies wheezing GI Denies abdominal pain, Denies change in bowel habits, Denies heartburn, Denies nausea and Denies vomiting Denies urinary frequency and Denies dysuria Musc Denies arthralgias, Denies muscle weakness and Denies numbness Skin/Breast Denies rash Neuro Denies memory loss, Denies numbness and Denies weakness Psych Denies depression and Denies memory loss Endo Denies fatigue, Denies polydipsia, Denies polyuria and Denies palpitations Brent/Lymph Reports easy bruising Aller/Immun Denies wheezing Physical exam (Primary Care) Vital Signs: Last Vital Signs Pulse 70 12/11/23 12:46 BP 118/76 12/11/23 12:46 Pulse Ox 98 12/11/23 12:46 Oxygen Delivery Method Room Air 12/11/23 12:46 Tobacco/Smoking Status: Tobacco use Status Tobacco use date assessed 12/11/23 12/11/23 12:52 Patient Tobacco Use Status Never used Tobacco 12/11/23 12:52 e-Cigarette/Vaping Use Never Used 12/11/23 12:52 PHQ-9: PHQ-9 Score PHQ-9: Total score 1 12/11/23 13:40 Depression Screening Interpretation: Negative Thrive Assessment: Date of Thrive Assessment Date Thrive assessed 12/11/23 12/11/23 13:40 Currently or been in a relationship where the following occur: no concerns reported Const General: healthy appearing, comfortable, no acute distress, alert and awake Orientation/consciousness: patient oriented x3 HENMT Face and sinus: Yes face symmetric Mouth: moist mucous membranes Eyes General: appearance normal, both eyes and all related structures Neck Neck: Yes full ROM, Yes no lymphadenopathy and Yes supple Thyroid: Thyroid normal Chest Breast/axilla palpation: normal palpation of the breasts Resp Auscultation: clear to auscultation bilaterally Cardio Other: S1-S2 present, regular rate and rhythm GI Inspection: Yes normal to inspection Palpation (GI): Soft to palpation, nontender, no guarding and no masses Auscultation: normal bowel sounds General: Yes no CVA tenderness and Yes deferred Back/Spine/Pelvis Back: no CVA tenderness and No back tenderness Skin General skin exam: no rashes or lesions noted Neuro General: patient oriented x3, gait normal, tone normal, moves all extremities, Normal light touch and pain sensation, no focal motor deficits and CN's II-XI intact bilaterally Gait exam (Neuro): Normal gait present Extrem General: Yes full ROM, Yes no joint enlargement, Yes no clubbing, cyanosis or edema, Yes no calf tenderness and Yes normal gait Psych Appearance: grossly normal and well kempt Mental Status: mental status grossly normal Speech and movement: Normal speech and movement present Affect: Anxious affect present Attitude: cooperative Thought process: Normal thought process present Thought content: Normal thought content present Assessment and Plan Assessment & Plan (1) Annual visit for general adult medical examination with abnormal findings: Code(s): Z00.01 - Encounter for general adult medical examination with abnormal findings Plan: Will check appropriate labs. Recommended dental visit every 6 months and regular eye exams, at least every 2 years. Take adequate calcium in diet and vitamin-D 3 at 2000 IU per cap once a day, in addition to weight-bearing exercises to help maintain good muscle tone and weight control. Instructed to do self-breast exam, and continue yearly mammogram, currently up-to-date. Will repeat another bone density scan in 2024. She has an appointment for screening colonoscopy next month already scheduled. Has had COVID vaccines in the past but does not want to get the booster, reminded to get her flu shot, and shingles vaccination, up-to-date with Tdap (2) History of major depression: Comment: Status post ECT March 2023 in [place] Code(s): Z86.59 - Personal history of other mental and behavioral disorders Plan: Improved with ECT, currently off psychiatric medications, and has been had any mood swings (3) OCD (obsessive compulsive disorder): Code(s): F42.9 - Obsessive-compulsive disorder, unspecified (4) Osteopenia of lumbar spine: Comment: Seen on bone density scan done 06/07/2015, with a T-score of -1.7 Code(s): M85.88 - Other specified disorders of bone density and structure, other site Plan: Advised to do regular weight-bearing exercise, take adequate calcium from dietary sources and continue taking vitamin-D 3 supplements at least 2000 units daily will repeat another bone density scan in 2024 (5) History of anxiety: Code(s): Z86.59 - Personal history of other mental and behavioral disorders Plan: Currently asymptomatic, improved with ECT (6) History of orthostatic hypotension: Comment: Due to psychoactive substances Code(s): Z86.79 - Personal history of other diseases of the circulatory system Plan: Has been seen and evaluated by Cardiology, advised to stay well-hydrated, avoid taking psychiatry medications Coding Level of Care Code Est Pt Prev Care 40-64y(02299) Diagnoses Annual visit for general adult medical examination with abnormal findings Z00.01 History of major depression Z86.59 OCD (obsessive compulsive disorder) F42.9 Osteopenia of lumbar spine M85.88 History of anxiety Z86.59 History of orthostatic hypotension Z86.79 Additional Codes DIAMOND-7 Assessment Billing - DIAMOND-7 Assessment Tool: DIAMOND-7 Assessment 32549 ([id number])
[2023-12-11 12:46] VITALS: BP 118/76; PULSE 70; O2SAT 98
== END 2023-12-11 13:18 | disposition home or self-care (01) ==
PROVIDERS: Visit Provider Internal Medicine
DX: Z00.00 Encounter for general adult medical examination without abnormal findings (principal); Z86.59 Personal history of other mental and behavioral disorders; F42.9 Obsessive-compulsive disorder, unspecified; M85.88 Other specified disorders of bone density and structure, other site; Z86.79 Personal history of other diseases of the circulatory system
CPT/HCPCS: 99396

== ENCOUNTER 2024-01-10 08:41 | Day surgery (SDC) | payer OTHER, SELFPAY ==
[2024-01-08 14:23] VITALS: BMI 22.5
--- NOTE | 2024-01-09 11:55 | HO.ANESPROP2 ---
HPI - Anesthesia Eval Consult details Narrative: 63yo F for Colonoscopy PMFSH Active Problems Active Problems: All Active Problems (Updated 12/25/23 @ 00:20 by Lory Damon MD) History of orthostatic hypotension (Acute) History of anxiety (Acute) History of major depression (Acute) Family history of polyps in the colon (Acute) OCD (obsessive compulsive disorder) (Acute) MDD (major depressive disorder), recurrent episode, severe (Acute) Family history of melanoma (Acute) Osteopenia of lumbar spine (Acute) Past Medical History Medical History (Updated 12/25/23 @ 00:20 by Lory Damon MD) History of orthostatic hypotension History of electroconvulsive therapy History of major depression Hypotension Generalized anxiety disorder Family history of melanoma Vision changes Osteopenia of lumbar spine History of uterine fibroid History of anxiety History of depression Family History Family History Father Cardiovascular disease Mother Melanoma, Onset Age: 81 Brother Mental health disorder Surgical History Surgical History Hx of colonoscopy History of vaginal hysterectomy Social History Social History Household Members: None Housing: Apartment Patient Tobacco Use Status: Never used Tobacco e-Cigarette/Vaping Use: Never Used service: No Current occupational status: employed Cognitive needs: No Hearing needs: No Vision needs: Yes Meds Allergies Allergy/AdvReac Type Severity Reaction Status Date / Time sulfamethoxazole Allergy Unknown Unknown Verified 01/08/24 14:13 [From Bactrim] trimethoprim [From Bactrim] Allergy Unknown Unknown Verified 01/08/24 14:13 nitrofurantoin AdvReac Unknown Unknown Verified 12/11/23 13:05 Home Medications Medication Instructions Recorded Confirmed Last Taken Type biotin 1 mg tablet 1 mg PO DAILY 12/05/22 01/08/24 Unknown History cholecalciferol (vitamin D3) 25 50 mcg PO DAILY 05/09/23 01/08/24 Unknown History mcg (1,000 unit) tablet thiamine HCl (vitamin B1) 100 mg 100 mg PO DAILY 05/09/23 01/08/24 Unknown History tablet (Vitamin B-1) multivitamin 1 tab PO DAILY 10/03/23 01/08/24 Unknown History Exam Height,Weight and Vital Signs: Height 5 ft 5 in Weight 61.235 kg Assessment and Plan Assessment Anesthesia Assessment: Chart Reviewed
[2024-01-10 08:55] VITALS: BMI 23.1
--- NOTE | 2024-01-10 09:13 | MHC.SHP ---
Pre-Procedural Eval Section A - 24 Hr Update-Section A only Date of Service: 01/10/24 The patient is an INPATIENT: No The patient has been examined within 24 hours of the surgical procedure. The History & Physical has been completed within 30 days and I have reviewed it.: No Section B - Complete if H&P > 30 days Chief Complaint: Colon cancer screening, FH of colon polyps Relevant Family History (Specify if Yes): Yes Relevant Social History: None Present Medications: see Short Stay Collaborative assessment Medical History: Significant History (History of anxiety History of depression History of uterine fibroid Hypotension Osteopenia of lumbar spine Vision changes) History of Previous Operations: Relevant previous surgery/procedure and date(s) (History of vaginal hysterectomy Hx of colonoscopy) Allergies: Allergies Allergy/AdvReac Type Severity Reaction Status Date / Time sulfamethoxazole Allergy Intermediate Rash Verified 01/10/24 08:58 [From Bactrim] trimethoprim [From Bactrim] Allergy Intermediate Rash Verified 01/10/24 08:58 nitrofurantoin AdvReac Intermediate Rash Verified 01/10/24 08:58 Review of Systems Sugical H&P ROS: Negative: Constitution, Cardiovascular, Respiratory and Gastrointestinal Exam Surgical H&P Exam: Normal: Heart, Normal: Lungs, Normal: Extremities and Normal: Abdomen Plan Diagnosis/Plan: Unchanged I have reviewed the history and physical and performed a pertinent physical examination on my patient. No changes have occurred unless specified. Time Spent With Patient Time: Total time managing care of this patient today ____ minutes.
--- NOTE | 2024-01-10 09:14 | HO.ANESPROP2 ---
[facility] Active Problems Active Problems: All Active Problems (Updated 12/25/23 @ 00:20 by Lory Damon MD) History of orthostatic hypotension (Acute) History of anxiety (Acute) History of major depression (Acute) Family history of polyps in the colon (Acute) OCD (obsessive compulsive disorder) (Acute) MDD (major depressive disorder), recurrent episode, severe (Acute) Family history of melanoma (Acute) Osteopenia of lumbar spine (Acute) Past Medical History Medical History History of orthostatic hypotension History of electroconvulsive therapy History of major depression Hypotension Generalized anxiety disorder Family history of melanoma Vision changes Osteopenia of lumbar spine History of uterine fibroid History of anxiety History of depression Functional capacity: independent ambulation Patient : No Family History Family History Father Cardiovascular disease Mother Melanoma, Onset Age: 81 Brother Mental health disorder Family history of problems with anesthesia: No Surgical History Surgical History Hx of colonoscopy History of vaginal hysterectomy History of Problems with Anesthesia: No Social History Social History Household Members: None Housing: Apartment Patient Tobacco Use Status: Never used Tobacco e-Cigarette/Vaping Use: Never Used service: No Current occupational status: employed Cognitive needs: No Hearing needs: No Vision needs: Yes Meds Allergies Allergy/AdvReac Type Severity Reaction Status Date / Time sulfamethoxazole Allergy Intermediate Rash Verified 01/10/24 08:58 [From Bactrim] trimethoprim [From Bactrim] Allergy Intermediate Rash Verified 01/10/24 08:58 nitrofurantoin AdvReac Intermediate Rash Verified 01/10/24 08:58 Active Medications: Current Medications Lactated Ringer's (Lr) 1,000 mls @ 100 mls/hr IVCONT .Q10H [facility] Home Medications Medication Instructions Recorded Confirmed Last Taken Type biotin 1 mg tablet 1 mg PO DAILY 12/05/22 01/08/24 Unknown History cholecalciferol (vitamin D3) 25 50 mcg PO DAILY 05/09/23 01/08/24 Unknown History mcg (1,000 unit) tablet thiamine HCl (vitamin B1) 100 mg 100 mg PO DAILY 05/09/23 01/08/24 Unknown History tablet (Vitamin B-1) multivitamin 1 tab PO DAILY 10/03/23 01/08/24 Unknown History Exam Height,Weight and Vital Signs: Height 5 ft 5 in Weight 63.106 kg Airway TM Dist: >3cm Neck ROM: Full Heart: RRR Lungs: CTA Assessment and Plan Assessment Anesthesia Assessment: Anesthesia Plan Discussed Final Anesthetic Review Family History of Problems with Anesthesia: No History of Problems with Anesthesia: No NPO: Yes ASA Class: II Final Preanesthetic Review: Meds/Allgs Chart Reviewed, Consent Obtained/Reviewed and Anes Risks/Benef Reviewed Patient Risk: Low Procedure Risk: Low Anesthetic Plan Anesthetic Plan: MAC: Disposition: Standard PACU
[2024-01-10 09:23] VITALS: BP 102/62; PULSE 53; RESP 16; TEMP 36.4; O2SAT 100
[2024-01-10] MEDS: Lactated Ringers 1,000 ML 100 ML IVCONT (09:24)
--- NOTE | 2024-01-10 09:51 | W.PM.OPN ---
Operative Note Operative Note Date of Service: 01/10/24 Narrative: COLONOSCOPY TILL CECUM WITH BIOPSIES, SNARE POLYPECTOMY, SUBMUCOSAL INJECTION AND HEMOCLIP PLACEMENT Pre-op diagnosis: Colon cancer screening, family history of colon polyps Post-op diagnosis:? Colon polyps, hemorrhoids Endoscopist:? Dallas Mtz MD Anesthesia:?MAC Consent: Indications for the procedure and potential complications of bleeding, perforation, reaction to medications and missed diagnosis were discussed with the patient and informed consent was obtained. Instrument: Olympus PCF H 190 L variable stiffness pediatric colonoscope Monitoring: Vital signs and clinical assessment, intermittent blood pressure monitoring, continuous EKG monitoring, Pulse oximetry and Carbon Dioxide monitoring were done throughout the procedure. Please see anesthesia flowsheet. Colon withdrawl time was 29 minutes. Procedure: The patient was placed in the left lateral decubitis position and pre-procedure medications were administered. After a digital rectal examination of the ano-rectum, the video colonoscope was inserted into the rectum and advanced through the colon to the cecum. The colonoscope was slowly withdrawn in a retrograde panoramic fashion and the colon mucosa was carefully examined including a retroflexed view of the rectum. Findings and interventions are described below. Procedure Difficulty: Colon was tortuous and there was some loop formation Findings: Terminal Ileum: Not evaluated Cecum: Normal Ascending Colon: A 15 to 18 mm flat polyp in the proximal AC at 60 cms. Polyp was raised with 2 cc of [place] and removed with a hot stiff snare. Polypectomy site was closed with 1 hemoclip and marked by Stacey ink Transverse Colon: Normal Descending Colon: Moderate diverticulosis Sigmoid Colon: A 4-5 mm diminutive appearing polyp - removed with a cold biopsy. Moderate diverticulosis Rectum: A 12 - 15 mm sessile polyp - removed with a hot snare. A 10 mm sessile polyp removed with a hot snare Ano-rectum: Normal Colon preparation: Good after some irrigation (pt stated she was only able to take half of her prep due to nausea and vomiting) [place] Bowel Preparation Scale Right colon; 2 Transverse colon: 3 Left colon; 3 (0 = Unprepared colon segment with mucosa not seen due to solid stool that cannot be cleared. 1 = Portion of mucosa of the colon segment seen, but other areas of the colon segment not well seen due to staining, residual stool and/or opaque liquid. 2 = Minor amount of residual staining, small fragments of stool and/or opaque liquid, but mucosa of colon segment seen well. 3 = Entire mucosa of colon segment seen well with no residual staining, small fragments of stool or opaque liquid) Impression and Post Procedure Diagnosis: Colonoscopy Findings: Three medium sized and one diminutive appearing polyps removed Moderate diverticulosis seen in the left colon Plan: Await pathology results Patient has an appointment on 01/22/24 in the [facility] with Meron Houston NP. Repeat Colonoscopy interval based on path results - in 3-5 years if polyps are adenomatous and 10 years if polyps are hyperplastic. (consider adding Dulcolax and using an alternate prep for future colonoscopies since pt had nausea and vomiting after drinking half of her prep) Above findings were reviewed with the patient and colon polyps and diverticulosis handouts were given in the discharge area
[2024-01-10 10:43] VITALS: BP 89/54; PULSE 65; RESP 16; TEMP 36.2; O2SAT 99
[2024-01-10 10:58] VITALS: BP 98/53; PULSE 52; RESP 16; TEMP 36.2; O2SAT 100
--- NOTE | 2024-01-10 14:06 | HO.POSTANES ---
Post Anesthesia Evaluation Post Anesthesia Evaluation Date of Service: 01/10/24 Vital Signs: Vital Signs Temp Pulse Resp BP Pulse Ox O2 Del Method 01/10/24 10:58 97.1 F 52 16 98/53 L 100 Room Air 01/10/24 10:43 97.1 F 65 16 89/54 L 99 Room Air 01/10/24 09:23 97.6 F 53 16 102/62 100 Room Air Anesthesia: Monitored Mental Status: Awake Pain Control: Satisfactory Nausea/Vomiting: None Hydration: Adequate Anesthesia-Related Issues: No Anes. Related Issues
== END 2024-01-10 11:20 | disposition home or self-care (01) ==
PROVIDERS: PCP Internal Medicine; Visit Provider Internal Medicine Gastroenterology
PROC: 0DJD8ZZ Inspection of Lower Intestinal Tract, Via Natural or Artificial Opening Endoscopic (ICD-10-PCS; CPT 45378; principal; 2024-01-10 09:50)
DX: Z12.11 Encounter for screening for malignant neoplasm of colon (principal); D12.2 Benign neoplasm of ascending colon; D12.8 Benign neoplasm of rectum; K56.2 Volvulus; K57.30 Diverticulosis of large intestine without perforation or abscess without bleeding; Z83.719 Family history of colon polyps, unspecified
CPT/HCPCS: 45385; 45380; 45381; 88305; J2704

== ENCOUNTER → 2024-01-10 08:41 | Outpatient (BNV) | payer OTHER, SELFPAY | PROVIDERS: PCP Internal Medicine; Visit Provider Internal Medicine Gastroenterology | DX: Z12.11 Encounter for screening for malignant neoplasm of colon (principal); Z83.719 Family history of colon polyps, unspecified; K63.5 Polyp of colon; K57.90 Diverticulosis of intestine, part unspecified, without perforation or abscess without bleeding | CPT/HCPCS: 45380; 45381; 45385 ==

== ENCOUNTER 2024-01-22 12:53 | Outpatient (AMB) | payer OTHER, SELFPAY ==
[2024-01-22 12:55] VITALS: BP 114/73; PULSE 72; BMI 22.9
--- NOTE | 2024-01-22 12:55 | A.OFFVIS_ITS ---
Intake Vital Signs 01/22/24 12:55 Height 5 ft 5 in Weight 137 lb 9.095 oz BMI 22.9 BP 114/73 Blood Pressure Location Rt brachial Position Sitting Pulse 72 Intake Visit Reasons: S/p colon Intake Note: Patient returns to office today in follow up s/p colonoscopy. CC: Patient reports she is taking fiber now and is able to have more BMs now. Allergies sulfamethoxazole [From Bactrim] Allergy (Intermediate, Verified 01/22/24 12:59) Rash trimethoprim [From Bactrim] Allergy (Intermediate, Verified 01/22/24 12:59) Rash Sulfa (Sulfonamide Antibiotics) Allergy (Unknown, Verified 01/22/24 12:59) Unknown nitrofurantoin Adverse Reaction (Intermediate, Verified 01/22/24 12:59) Rash HPI S/p colon HPI Details Assessment & Plan (1) Pre-op examination: Code(s): Z01.818 - Encounter for other preprocedural examination Plan: Her last colonoscopy was in 2011 and was negative. Her brother had polyps recently removed. No bowel or upper GI problems There are no prior problems with anesthesia or sedation. She denies any cardiac or respiratory problems. NO Id problems. Again, her brother recently had polyps removed. (2) Family history of polyps in the colo n: Comment: brother Code(s): Z83.71 - Family history of colonic polyps (3) Aortic heart murmur: Code(s): I35.8 - Other nonrheumatic aortic valve disorders Medications: New peg 3350-electroly michael 236-22.74-6.74 -5.86 gram (Golyt gwen) until feca l effluent is tracey r; do not exceed a total volume of 2 ,000 mL 240 mL PO Q10M 1 day 4,000 mL 0RF Z12.11 - Encounter for screening for malignant neoplas m of colon COLONOSCOPY 01/10/24 Findings: Terminal Ileum: Not evaluated Cecum: Normal Ascending Colon: A 15 to 18 mm flat polyp in the proximal AC at 60 cms. Polyp was raised with 2 cc of Eleview and removed with a hot stiff snare. Polypectomy site was closed with 1 hemoclip and marked by Stacey ink Transverse Colon: Normal Descending Colon: Moderate diverticulosis Sigmoid Colon: A 4-5 mm diminutive appearing polyp - removed with a cold biopsy. Moderate diverticulosis Rectum: A 12 - 15 mm sessile polyp - removed with a hot snare. A 10 mm sessile polyp removed with a hot snare Ano-rectum: Normal Colon preparation: Good after some irrigation (pt stated she was only able to take half of her prep due to nausea and vomiting) Impression and Post Procedure Diagnosis: Colonoscopy Findings: Three medium sized and one diminutive appearing polyps removed Moderate diverticulosis seen in the left colon Plan: Await pathology results Patient has an appointment on 01/22/24 in the GI Clinic with Meron Houston NP. Repeat Colonoscopy interval based on path results - in 3-5 years if polyps are adenomatous and 10 years if polyps are hyperplastic. (consider adding Dulcolax and using an a lternate prep for future colonoscopies since pt had nausea and vomiting after drinking half of her prep) BIOPSY Received: 01/10/24 Diagnosis A. Colon, ascending at 60 cm, polypectomy: Fragments of sessile serrated lesion/polyp; negative for cytologic dysplasia. B. Colon, sigmoid, polypectomy: Hyperplastic mucosal polyp. C. Rectum, polypectomies: Fragments of traditional serrated adenomata; negative for high-grade dysplasia or carcinoma. TODAY'S VISIT The procedure needs to be repeated in 3 years. She would like a split prep and procedure later in the day for the next procedure. The procedure was well tolerated. The results were explained and the patient is agreeable to the follow-up interval as stated. The bowel pattern has returned to normal. Education was provided to tell any 1st degree relatives about their findings to be sure that they are screened by age 45. Educated that they will be put on a recall list when it is time for their repeat scope but should they move out of state or away from the hospital they will need to remember along with their primary to repeat the procedure in a timely fashion to avoid any adverse complications. She tells me that her brother DID NOT have colon polyps. We will correct this in her chart. [facility]ocampos [facility] Medical History (Updated 01/22/24 @ 13:08 by OPHELIA Small) History of orthostatic hypotension History of electroconvulsive therapy History of major depression Hypotension Generalized anxiety disorder Family history of melanoma Vision changes Osteopenia of lumbar spine History of uterine fibroid History of anxiety History of depression Surgical History Hx of colonoscopy History of vaginal hysterectomy Family History Father Cardiovascular disease Mother Melanoma, Onset Age: 81 Brother Mental health disorder Social History Household Members: None Housing: Apartment Patient Tobacco Use Status: Never used Tobacco e-Cigarette/Vaping Use: Never Used service: No Current occupational status: employed Cognitive needs: No Hearing needs: No Vision needs: Yes Review of Systems Const Denies fatigue, Denies fever(s), Denies night sweats, Denies poor appetite and Denies weight loss ENT Reports Normal hearing present, Denies dental pain, Denies dysphagia, Denies hearing loss, Denies mouth pain, Denies odynophagia, Denies throat swelling, Denies tongue swelling and Reports other (Dentition adequate) Card Reports no additional complaints Resp Reports no additional complaints GI Details: Denies abdominal pain, Denies melena, Denies bloating, Denies hematochezia, Denies constipation, Denies GI cramping, Denies dysphagia, Denies excessive flatus, Denies early satiety, Denies heartburn, Denies diarrhea, Denies nausea, Denies odynophagia, Denies vomiting and Denies hematemesis Skin/Breast Denies pruritus, Denies lesions, Denies rash and Denies jaundice Neuro Reports Normal hearing present and Denies Abnormal speech present Endo Denies fatigue Aller/Immun Denies throat swelling and Denies tongue swelling Physical Exam Vital Signs: Last Vital Signs Pulse 72 01/22/24 12:55 BP 114/73 01/22/24 12:55 BMI result Body Mass Index 22.9 Const General: cooperative, no acute distress, well developed and well groomed Nutritional Appearance: average body habitus and well nourished Orientation/consciousness: oriented to person, oriented to place and oriented to time Limitations: No language barrier HEENT Head: Yes normocephalic and Yes atraumatic Eyes General: appearance normal, both eyes and all related structures Pupils: Equal, round and reactive pupils present Neck Neck: Yes normal visual inspection and Yes no lymphadenopathy Thyroid: Thyroid normal Resp Effort & Inspection: normal respiratory effort and able to speak in complete sentences Auscultation: clear to auscultation bilaterally Cardio Rate: regular rate Rhythm: regular rhythm Heart sounds: Normal, physiologic split S2 sound present Peripheral pulses: radial pulses present and posterior tibial pulses present GI Inspection: No distended and No Abdominal panniculus present Palpation (GI): Soft to palpation, nontender, no guarding, not rigid and No hepatosplenomegaly present Percussion: Yes normal to percussion Auscultation: normal bowel sounds Rectal Exam - Female: deferred Skin General skin exam: no rashes or lesions noted, turgor normal, skin not dry, no jaundice, No spider nevi and no striae Rashes: no rashes Nails: normal Neuro General: oriented to person, oriented to place and oriented to time Cranial nerves: Yes Equal, round and reactive pupils present and Yes Normal hearing present Speech: No Abnormal speech present Extrem General: Yes normal to inspection, No clubbing, No cyanosis and No edema Psych Appearance: grossly normal and well kempt Mental Status: mental status grossly normal Speech and movement: Normal speech and movement present Affect: normal affect Attitude: cooperative Thought process: Normal thought process present and not confabulating Thought content: Normal thought content present Insight: Fair insight present (Psych) Judgement: Fair judgement present (Psych) Assessment & Plan Assessment & Plan (1) Tubular adenoma of colon: Comment: TWO SESSILE SERRATED ADENOMAS 2023 SCOPE Code(s): D12.6 - Benign neoplasm of colon, unspecified Plan The procedure needs to be repeated in 3 years. She would like a split prep and procedure later in the day for the next procedure. The procedure was well to lerated. The results were explained and the patient is agreeable to the follow- up interval as stated. The bowel pattern has returned to normal. Education was provided to tell any 1st degree relatives about their findings to be sure that they are screened by age 45. Educated that they will be put on a recall list when it is time for their repeat scope but should they move out of state or away from the hospital they will need to remember along with their primary to repeat the procedure in a timely fashion to avoid any adverse complications. She tells me that her brother DID NOT have colon polyps. We will correct this in her chart. prn Coding Level of Care Code Est Pt Level 3 (66533) Diagnoses Tubular adenoma of colon D12.6
== END 2024-01-22 14:03 | disposition home or self-care (01) ==
PROVIDERS: PCP Internal Medicine; Visit Provider Nurse Practitioner
DX: D12.6 Benign neoplasm of colon, unspecified (principal)
CPT/HCPCS: 99213

== ENCOUNTER → 2024-01-22 12:53 | Outpatient (BNVA) | payer OTHER, SELFPAY | PROVIDERS: PCP Internal Medicine; Visit Provider Nurse Practitioner | DX: D12.6 Benign neoplasm of colon, unspecified (principal) | CPT/HCPCS: 99212 ==

== ENCOUNTER 2024-09-25 15:21 | Outpatient (REF) | payer OTHER, SELFPAY ==
--- NOTE | ~2024-09-25 | MM_ITS ---
EXAMINATION: MM SCREENING DIGITAL BREAST TOMOSYNTHESIS, BILATERAL CLINICAL INFORMATION: Screening. Asymptomatic. COMPARISON: Mammography: Comparison is made with available priors TECHNIQUE: Digital breast mammography with tomosynthesis is performed in both the craniocaudal and mediolateral oblique views along with computer-aided detection (CAD). FINDINGS: The breasts are heterogeneously dense, which may obscure small masses (ACR BI-RADS breast composition Category c). There are no significant masses, abnormal calcifications, or other abnormalities. MM/MM tomosynthesis screening BI IMPRESSION: No mammographic evidence of malignancy. ASSESSMENT: BI-RADS BI-RADS 1 - Negative RECOMMENDATION: Routine annual mammography screening. 1 year F/U This examination should not preclude the clinical evaluation of a suspicious palpable abnormality. This patient's information was entered into a reminder system with a target due date for their next mammogram. Electronically signed by: Jocelin Celis DO 10/05/2024 08:51 AM BREEZY
== END 2024-09-25 15:22 | disposition home or self-care (01) ==
LOC: HO.MAMMO 15:21
PROVIDERS: PCP Internal Medicine; Visit Provider Internal Medicine
DX: Z12.31 Encounter for screening mammogram for malignant neoplasm of breast (principal)
CPT/HCPCS: 77063; 77067

== ENCOUNTER → 2024-09-25 15:30 | Outpatient (BNV) | payer OTHER, SELFPAY | PROVIDERS: PCP Internal Medicine; Visit Provider Internal Medicine | DX: Z12.31 Encounter for screening mammogram for malignant neoplasm of breast (principal) | CPT/HCPCS: 77063; 77067 ==

== ENCOUNTER 2025-10-01 12:11 | Outpatient (REF) | payer OTHER, SELFPAY ==
--- NOTE | ~2025-10-01 | MM_ITS ---
EXAMINATION: MM SCREENING DIGITAL BREAST TOMOSYNTHESIS, BILATERAL CLINICAL INFORMATION: Screening. Asymptomatic. COMPARISON: Mammography: Comparison is made with available priors TECHNIQUE: Digital breast mammography with tomosynthesis is performed in both the craniocaudal and mediolateral oblique views along with computer-aided detection (CAD). FINDINGS: There are scattered areas of fibroglandular density. Asymmetry superior breast middle depth on MLO view. No suspicious calcifications or other abnormal findings. Left: There are no significant masses, abnormal calcifications, or other abnormalities. MM/MM tomosynthesis screening BI IMPRESSION: Additional imaging is recommended ASSESSMENT: BI-RADS Category 0: Incomplete - Need additional Imaging Evaluation RECOMMENDATION: 1. Additional views of the right breast. 2. Targeted ultrasound if warranted after review of the additional views. 3. Radiology department staff will contact the patient for additional imaging. Additional Imaging required Electronically signed by: Jocelin Celis DO 10/04/2025 11:45 AM BREEZY
--- OUTSIDE RECORDS SUMMARY | 2025-10-01 13:43 | XMS_ITS | Clinical Summary ---
Author Organization [facility] Address [address] [place] [address] Care Team Providers Care Supervisor Accounting Clerks Name Role Phone Lory Damon MD Primary Care Provider [phone] Allergies Active Allergy Reactions Criticality Noted Date Comments Sulfamethoxazole-Trimethoprim Hives 2022 Sulfa Antibiotics Hives 02/05/2023 Medications Medication Sig Dispensed Refills Start Date End Date Status sertraline (ZOLOFT) 100 MG tabletIndications:Gamaliel or Depressive Disorder Take 2 tablets (200 mg total) by mouth daily. 60 tablet 0 03/16/2023 Active Melatonin 10 MG TABSIndications:Insom tialia Take 10 mg by mouth every night at bedtime. 30 tablet 0 03/15/2023 Active clonazePAM (KlonoPIN) 0.5 MG tabletIndications:Anx iety Take 3 tablets (1.5 mg total) by mouth every night at bedtime. 14 tablet 0 03/15/2023 Active buPROPion (WELLBUTRIN XL) 150 MG 24 hr tabletIndications:Gamaliel or Depressive Disorder Take 1 tablet (150 mg total) by mouth daily. 30 tablet 0 03/16/2023 Active folic acid (FOLVITE) tablet 1 mgIndications:Folate Deficiency Anemia Take 1 tablet (1 mg total) by mouth daily. 30 tablet 0 03/16/2023 Active OLANZapine (ZyPREXA) 15 MG tabletIndications:Dep ressive Phase Bipolar Mood Disorder Take 1 tablet (15 mg total) by mouth every night at bedtime. 30 tablet 0 03/15/2023 Active senna (SENOKOT) 8.6 MG tabletIndications:Con stipation Take 1 tablet by mouth every night at bedtime. 14 tablet 0 03/15/2023 Active thiamine mononitrate (THIAMINE) 100 MG tabletIndications:Thi amine Deficiency Take 1 tablet (100 mg total) by mouth daily. 30 tablet 0 03/16/2023 Active Active Problems Problem Noted Date Diagnosed Date Mild cognitive impairment of uncertain or unknow n etiology 03/14/2023 Severe episode of recurrent major depressive disorder, without psychotic features 02/07/2023 Suicidal ideation 02/05/2023 Social History Tobacco Use Types Packs/Day Years Used Date Smoking Tobacco: Never Smokeless Tobacco: Never Alcohol Use Standard Drinks/Week Comments Not Currently 0 (1 standard drink = 0.6 oz pur e alcohol) Sex and Gender Information Value Date Recorded Sex Assigned at Female 02/04/2023 6:34 PM EST Gender Identity Not on file Sexual Orientation Not on file Job Start Date Occupation Industry Not on file Not on file Not on file Last Filed Vital Signs Vital Sign Reading Time Taken Comments Blood Pressure 96/63 03/15/2023 8:00 AM EDT Pulse 64 03/15/2023 8:00 AM EDT Temperature 36.4 C (97.5 F) 03/15/2023 8:00 AM EDT Respiratory Rate 18 03/15/2023 8:00 AM EDT Oxygen Saturation 95% 03/15/2023 8:00 AM EDT Inhaled Oxygen Concentration - - Weight 57.1 kg (125 lb 12.8 oz) 02/10/2023 7:53 AM EDT Height 165.1 cm (5' 5 ) 02/06/2023 1:00 PM EST Body Mass Index 20.93 02/06/2023 1:00 PM EST Plan of Treatment Health Maintenance Due Date Last Done Comments Hepatitis C Screening 1961 Depression Screening 1973 Preventative Health Evaluation 1979 Cervical Cancer Screening (Pap Smear) 1982 Colon Cancer Screening (Colonoscopy) 2006 DTap / Tdap / Td (1 - Tdap) 01/22/2008 01/21/2008 Breast Cancer Screening (Mammogram) 2011 Shingrix-Zoster Vaccine (1 o f 2) 2011 COVID-19 Vaccine (4 - 2024-2 6 season) 2025 01/29/2022, 03/27/2021, 03/03/2021 Influenza Vaccine (#1) 2025 RSV Adult > 60+ Yrs or (1 - 1-dose 75+ series) 2036 Hepatitis B Vaccines Aged Out No long er eligible based on patient's age to complete this topic Pneumococcal Vaccine Aged Out No long er eligible based on patient's age to complete this topic RSV Ped < 20 months Aged Out No longe r eligible based on patient's age to complete this topic Advance Directives For more information, please contact: [phone] Latest Code Status on File Code Status Date Activated Date Inactivated Comments Full Code 02/05/2023 12:51 PM 03/15/2023 5:32 PM This code status was ascertained in the following way: per unit protocol. Code Status History Code Status Date Activated Date Inactivated Comments Full Code 02/05/2023 12:51 PM 02/05/2023 12:51 PM Per u nit protocol Care Teams Supervisor Accounting Clerks Relationship Specialty Start Date End Date Lory Damon MD [address] [place] [address] PCP - General Internal Medicine 02/04/23
--- OUTSIDE RECORDS SUMMARY | 2025-10-01 13:43 | XMS_ITS ---
Author Name [facility] Unknown History of Medication Use Medication Directions Dispensed Refills Start Date End Date Stat us No known medications No known medications active Allergies Allergen Reaction Severity Comment Documented Date Source Statu s SULPHAMETHOXYDIAZINE RASH/DERMATITIS 03/15/2023 [facility] active Problems Problem Status Onset Date Problem Type Date of Resoluti on Source Dyspepsia active 2023-03-15 [facility] OCD (obsessive compulsive disorder) active 2023-03-15 ProblemAct [facility] DIAMOND (generalized anxiety disorder) active 2023-03-15 ProblemAct [facility] Severe episode of recurrent major depressive disorder, without psychotic features active 2023-03-15 ProblemAct [facility] Major depressive disorder with single episode active 2023-03-15 ProblemAct [facility] Immunizations Vaccine Date Source Lot Number Status Influenza Inactivated/Split Preservative Free IM 03/16/2023 [facility] completed Care Team Organization Name Specialty Phone Email Start Date End Da te [facility] 03/22/20232022 [facility]
--- OUTSIDE RECORDS SUMMARY | 2025-10-01 13:43 | XMS_ITS | Clinical Summary ---
Author Organization [facility] Address [address] [place] [address] Care Team Providers Care Sander And Polisher Name Role Phone Lory Damon MD Primary Care Provider [phone] Allergies Active Allergy Reactions Criticality Noted Date Comments Sulphamethoxydiazine Rash/Dermatitis High 03/15/2023 Medications * This document contains information received from the source organization and may not represent a complete record from that organization. cholecalciferol (CHOLECALCIFEROL ) 25 MCG (1000 UT) tabletIndication s:Severe episode of recurrent major depressive disorder, without psychotic features (HCC) Take 2 tablets (2,000 Units total) by mouth daily. 60 tablet 04/10/2023 Active folic acid (FOLVITE) 1 MG tabletIndication s:Severe episode of recurrent major depressive disorder, without psychotic features (HCC) Take 1 tablet (1 mg total) by mouth daily. 30 tablet 04/10/2023 Active melatonin 3 MG Tab tabletIndication s:Severe episode of recurrent major depressive disorder, without psychotic features (HCC) Take 1 tablet (3 mg total) by mouth nightly. 14 tablet 1 04/10/2023 Active mirtazapine (REMERON) 15 MG tabletIndication s:Severe episode of recurrent major depressive disorder, without psychotic features (HCC) Take 1 tablet (15 mg total) by mouth nightly. 14 tablet 1 04/10/2023 Active psyllium (METAMUCIL) 58.12 % Pack packetIndication s:Severe episode of recurrent major depressive disorder, without psychotic features (HCC) Take 1 packet by mouth daily. 30 packet 04/10/2023 Active risperiDONE (RisperDAL) 1 MG tabletIndication s:Severe episode of recurrent major depressive disorder, without psychotic features (HCC) Take 1 tablet (1 mg total) by mouth nightly. 14 tablet 1 04/10/2023 Active sertraline (ZOLOFT) 100 MG tabletIndication s:Severe episode of recurrent major depressive disorder, without psychotic features (HCC) Take 2 tablets (200 mg total) by mouth daily. 28 tablet 1 04/10/2023 Active sodium chloride 1 g tabletIndication s:Severe episode of recurrent major depressive disorder, without psychotic features (HCC) Take 1 tablet (1 g total) by mouth 2 (two) times a day with meals. 28 tablet 04/10/2023 Active thiamine mononitrate (VITAMIN B-1) 100 MG tabletIndication s:Severe episode of recurrent major depressive disorder, without psychotic features (HCC) Take 1 tablet (100 mg total) by mouth daily. 30 tablet 04/10/2023 Active fludrocortisone (FLORINEF) 0.1 MG tabletIndication s:Severe episode of recurrent major depressive disorder, without psychotic features (HCC) Take 2 tablets (0.2 mg total) by mouth daily. Do not start before April 11, 2023. 28 tablet 04/11/2023 Active Active Problems Problem Noted Date Diagnosed Date Major depressive disorder with single episode Dyspepsia 03/15/2023 Severe episode of recurrent major depressive disorder, without psychotic features 03/15/2023 OCD (obsessive compulsive disorder) 03/15/2023 DIAMOND (generalized anxiety disorder) 03/15/2023 Immunizations Immunization Administration Dates Next Due Influenza Inactivated/Split Preservative Free IM 04/10/2023(),03/16/2023(Deferred: - Did not get before admit/Doesn't want refused) Social History Tobacco Use Types Packs/Day Years Used Date Smoking Tobacco: Never Smokeless Tobacco: Never Tobacco Cessation:Counseling Given: No Alcohol Use Standard Drinks/Week Comments Never 0 (1 standard drink = 0.6 oz pur e alcohol) AUDIT-C Answer Date Recorded Q1: How often do you have a drink containing alcohol? Never 03/15/2023 Q2: How many drinks containi ng alcohol do you have on a typical day when you are drinking? Patient does not drink Q3: How often do you have si x or more drinks on one occasion? Never 03/15/2023 Comments Unknown Sex and Gender Information Value Date Recorded Sex Assigned at Female 03/18/2023 3:27 PM EDT Legal Sex Female 10:55 AM EDT Gender Identity Female 03/18/2023 3:27 PM EDT Sexual Orientation Not on file Last Filed Vital Signs Vital Sign Reading Time Taken Comments Blood Pressure 79/48 04/10/2023 1:20 PM EDT Pulse 68 04/10/2023 1:20 PM EDT Temperature 37.1 C (98.8 F) 04/10/2023 1:19 PM EDT Respiratory Rate 18 04/09/2023 6:13 PM EDT Oxygen Saturation 98% 03/31/2023 7:45 PM EDT Inhaled Oxygen Concentration - - Weight 58.1 kg (128 lb) 03/22/2023 12:09 PM EDT Height 165.1 cm (5' 5 ) 03/15/2023 4:06 PM EDT Body Mass Index 21.3 03/15/2023 4:06 PM EDT Plan of Treatment Health Maintenance Due Date Last Done Comments Hepatitis C Virus Screening 1961 HIV Screening 1974 DTaP/Tdap/Td Vaccines (1 - Tdap) 1980 Pap Smear (Ages 21-65) 1982 Mammogram 2001 Colonoscopy 2006 Pneumococcal Vaccines 50+ (1 of 1 - PCV) 2011 Zoster (Shingles) Vaccine (1 of 2) 2011 Influenza Vaccine 07/02/2025 COVID-19 Vaccine (4 - 2024-2 6 season) 2025 01/29/2022, 03/27/2021, 03/03/2021 RSV Vaccine 50 years and older and Patients (1 - 1-dose 75+ series) 2036 Hepatitis B Vaccines Aged Out No long er eligible based on patient's age to complete this topic Insurance [employer] Advance Directives * Full Code (Latest Code Status on File) Date Activated Date Inactivated Comments 03/15/2023 3:46 PM Question Answer Comments Decision Thoroughly Discussed with: Patient Care Teams Sander And Polisher Relationship Specialty Start Date End Date Lory Damon MD [address] [place] [address] PCP - General Internal Medicine 03/18/23
--- OUTSIDE RECORDS SUMMARY | 2025-10-01 13:43 | XMS_ITS | Clinical Summary ---
Author Organization [facility] Address [address] [place] [address] Care Team Providers Care Pin Drafter Operator Name Role Phone Lory Damon MD Primary Care Provider Surgical History Surgery Date Site/Laterality Comments PARTIAL HYSTERECTOMY PROCEDURE:PARTIAL HYSTERECTOMY Social History Tobacco Use Types Packs/Day Years Used Date Smoking Tobacco: Never Smokeless Tobacco: Never Alcohol Use Standard Drinks/Week Comments Not Currently 0 (1 standard drink = 0.6 oz pur e alcohol) Comments Unknown Sex and Gender Information Value Date Recorded Sex Assigned at Not on file Legal Sex Female 1:03 PM EST Gender Identity Not on file Sexual Orientation Not on file Obstetrics History Plan of Treatment Health Maintenance Due Date Last Done Comments Breast Cancer Screening 1961 Colorectal Cancer Screening: Colonoscopy 1961 DTaP,Tdap,and Td Vaccines (1 - Tdap) 1980 Cervical Cancer Screening: P ap Smear 1982 Pneumococcal Vaccine: 50+ Ye ars (1 of 1 - PCV) 2011 Zoster Vaccines (1 of 2) 2011 HIV Screening 10/30/2022 Hepatitis C Screening 10/30/2022 Social Influencers of Health Screening 10/30/2022 Depression Screening 12/02/2024 COVID-19 Vaccine (1 - 2023-2 5 season) 2025 Influenza Vaccine (#1) 2025 Cholesterol Screening (Lipid Panel) 02/05/2028 02/04/2023 RSV Immunization Adult Patie nts (1 - 1-dose 75+ series) 2036 HIB Vaccines Aged Out No longer eligi ble based on patient's age to complete this topic HPV Vaccines Aged Out No longer eligi ble based on patient's age to complete this topic Hepatitis A Vaccines Aged Out No long er eligible based on patient's age to complete this topic Hepatitis B Vaccines Aged Out No long er eligible based on patient's age to complete this topic IPV Vaccines Aged Out No longer eligi ble based on patient's age to complete this topic MMR Vaccines Aged Out No longer eligi ble based on patient's age to complete this topic Meningococcal ACWY Vaccine Aged Out N o longer eligible based on patient's age to complete this topic Meningococcal B Vaccine Aged Out No l onger eligible based on patient's age to complete this topic RSV Immunization Patients Un caroline 20 months Aged Out No longer eligible b ased on patient's age to complete this topic Varicella Vaccines Aged Out No longer eligible based on patient's age to complete this topic Care Teams Pin Drafter Operator Relationship Specialty Start Date End Date Lory Damon MD [address] [facility] [place] [address] PCP - General 02/04/23
== END 2025-10-01 12:12 | disposition home or self-care (01) ==
LOC: HO.MAMMO 12:11
PROVIDERS: PCP Internal Medicine; Visit Provider Internal Medicine
DX: Z12.31 Encounter for screening mammogram for malignant neoplasm of breast (principal)
CPT/HCPCS: 77063; 77067

== ENCOUNTER → 2025-10-01 12:30 | Outpatient (BNV) | payer OTHER, SELFPAY | PROVIDERS: PCP Internal Medicine; Visit Provider Internal Medicine | DX: Z12.31 Encounter for screening mammogram for malignant neoplasm of breast (principal) | CPT/HCPCS: 77063; 77067 ==

== ENCOUNTER 2025-10-12 10:53 | Outpatient (AMB) | payer OTHER, SELFPAY ==
--- NOTE | 2025-10-12 11:03 | A.OFFPC_ITS ---
Vital Signs 10/12/25 11:09 Height 5 ft 5 in Weight 136 lb BMI 22.6 BP 90/60 Blood Pressure Location Rt brachial Position Sitting Respiration 16 Pulse 62 Pulse Source Pulse Oximeter Temp 97.8 F Temp Source Oral Pulse Oximetry (%) 96 Oxygen Delivery Method Room Air Intake Visit Reasons: Annual PE Intake Note: Pt is here today for her PE: last mammogram 10/01/25, papsmear 01/07/19, colonoscopy 01/10/24 Monorail Hooker Required: No Allergies sulfamethoxazole (From Bactrim) Allergy (Intermediate, Verified 10/12/25 11:48) Rash trimethoprim (From Bactrim) Allergy (Intermediate, Verified 10/12/25 11:48) Rash Sulfa (Sulfonamide Antibiotics) Allergy (Unknown, Verified 10/12/25 11:48) Unknown nitrofurantoin Adverse Reaction (Intermediate, Verified 10/12/25 11:48) Rash Medication List - Last Reconciled 10/12/25 by Lory Damon MD biotin 1 mg PO DAILY Tobacco use date assessed: 10/12/25 Dental Screening Dental Screen Date: 10/12/25 Did you have a dental visit in the last 12 months?: Yes Did you have a dental problem in the last 6 months where you did not have access to dental care?: No Was dental information given to patient?: Patient has dentist HPI Annual PE HPI Details :The patient is a 64-year-old female presenting for a physical examination She had a recent colonoscopy done last year by Dr. Mtz, with precancerous polyps removed, prompting a recommendation for surveillance every three years. She denies any family history of colon cancer. The patient reported dizziness during the colonoscopy preparation and did not finish the prep solution. She has post-surgical menopause following a partial hysterectomy at age 53 for uterine fibroids, which caused severe bleeding and clotting. She has never been on hormone replacement therapy and currently experiences postmenopausal symptoms, including hot flashes. She is overdue for a gynecological exam as her previous provider retired, and her last Pap smear was in 01/07/2019. A bone density scan two years ago revealed osteopenia, noted to be in the left hip and thigh. She reports being inconsistent with vitamin D and not taking calcium supplements. She has no personal history of fractures. Regarding other health screenings, a mammogram 10/01/25 required a follow-up for additional views of the right breast , with no mass noted; an appointment is scheduled. She has a family history of melanoma and would like to be referred to see dermatology. She goes to [facility] ,sees Dr Cuevas with incipient cataracts noted , has Dry Eye syndrome , no macular degeneration Past laboratory results show a slightly elevated blood sugar of 105 and LDL cholesterol of 161 mg/dl. She reports a past episode of anxiety and depression, which she attributes to a lack of sleep, and states it is now resolved. For sleep, she has been taking [id number] melatonin gummies. In terms of immunizations, she received a flu shot today, has completed the shingles vaccine series, and is up-to-date on her tetanus shot, but she declines the COVID booster. [facility] Medical History (Updated 10/17/25 @ 22:45 by Lory Damon MD) Surgical menopause Osteopenia of multiple sites History of orthostatic hypotension History of electroconvulsive therapy History of major depression Hypotension Generalized anxiety disorder Family history of melanoma Vision changes Osteopenia of lumbar spine History of uterine fibroid History of anxiety History of depression Surgical History Hx of colonoscopy History of vaginal hysterectomy Family History Father Cardiovascular disease Mother Melanoma, Onset Age: 81 Brother Mental health disorder Social History Household Members: None Housing: Apartment Patient Tobacco Use Status: Never used Tobacco e-Cigarette/Vaping Use: Never Used service: No Current occupational status: employed Cognitive needs: No Hearing needs: No Vision needs: Yes Questionnaire PHQ-9 Over the last 2 weeks, how often have you been bothered by any of the following problems? 1. Little interest or pleasure in doing things: not at all 2. Feeling down, depressed, or hopeless: not at all 3. Trouble falling or staying asleep, or sleeping too much: not at all 4. Feeling tired or having little energy: not at all 5. Poor appetite or overeating: not at all 6. Feeling bad about yourself - or that you are a failure or have let yourself or your family down: not at all 7. Trouble concentrating on things, such as reading the newspaper or watching television: not at all 8. Moving or speaking so slowly that other people could have noticed. Or the opposite - being so fidgety or restless that you have been moving around a lot more than usual: not at all 9. Thoughts that you would be better off or of hurting yourself in some way: not at all Total score: 0 Depression Screening Interpretation: Negative Depression Screening Done: Yes 86992 - PHQ-9 Billing: Yes Source: Developed by Drs. Preet Conrad, Myriam Srinivasan, Salty Stanton and colleagues, with an educational robert from [employer]. Thrive Questionnaire Date Thrive assessed: 10/12/25 I am a: Patient What is your living situation today?: I have a steady place to live Within the past 12 months, did the food you bought not last and you didn't have the money to get more?: Never true Within the past 12 months, did you worry whether your food would run out before you got money to buy more?: Never true Do you have trouble paying for medicines?: No Do you have trouble getting transportation to medical appointments?: No Do you have trouble paying your heating and electricity bill?: No Do you have trouble taking care of your child, family member or friend?: No Do you have trouble with day-to-day activities such as bathing, preparing meals, shopping, managing finances, etc.?: No Are you currently unemployed and looking for a job?: No Are you interested in more education?: No Please select the resources that you would like help with: None Currently or been in a relationship where the following occur: No concerns reported THRIVE Score: 0 AUDIT C Alcohol Use Questionnaire (AUDIT-C) 1. How often do you have a drink containing alcohol?: 2-4 times a month 2. How many drinks containing alcohol do you have on a typical day when you are drinking?: 1 or 2 3. How often do you have six or more drinks on one occasion?: Never Total Score: 2 Score Reviewed/Action Taken: Yes DIAMOND-7 AMB Questionnaire DIAMOND-7 Date DIAMOND - 7 assessed: 10/12/25 Feeling nervous, anxious, or on edge: 0 = Not at all Not being able to stop or control worryin = Not at all Worrying too much about different things: 0 = Not at all Trouble relaxin = Not at all Being so restless that it is hard to sit still: 0 = Not at all Becoming easily annoyed or irritable: 0 = Not at all Feeling afraid as if something awful might happen: 0 = Not at all Total DIAMOND-7 score (0-4 normal; 5-9 mild; 10-14 moderate; 15-21 severe): 0 Source: Developed by Drs. Preet Conrad, Myriam Srinivasan, Salty Stanton and colleagues, with an educational robert from [employer]. DIAMOND-7 Assessment Billing DIAMOND-7 Assessment Tool: DIAMOND-7 Assessment 15357 Review of Systems Const Denies fatigue, Denies fever(s), Denies night sweats, Denies poor appetite and Denies weight loss Eyes Details: sees Aaron Mcghee at [facility] Reports requires corrective lenses ENT Reports Normal hearing present, Denies dental pain, Denies dysphagia, Denies hearing loss, Denies mouth pain, Denies odynophagia, Denies throat swelling, Denies tongue swelling and Reports other (Dentition adequate) Card Details: dental hygieneist Reports no additional complaints Resp Reports no additional complaints GI Details: Denies abdominal pain, Denies melena, Denies bloating, Denies hematochezia, Denies constipation, Denies GI cramping, Denies dysphagia, Denies excessive flatus, Denies early satiety, Denies heartburn, Denies diarrhea, Denies nausea, Denies odynophagia, Denies vomiting and Denies hematemesis Reports no additional complaints Musc Reports no additional complaints Skin/Breast Denies pruritus, Denies lesions, Denies rash and Denies jaundice Neuro Reports Normal hearing present and Denies Abnormal speech present Psych Reports no additional complaints Endo Denies fatigue Brent/Lymph Reports no additional complaints Aller/Immun Denies throat swelling and Denies tongue swelling Physical exam (Primary Care) Vital Signs: Last Vital Signs Temp 97.8 F 10/12/25 11:09 Pulse 62 10/12/25 11:09 Resp 16 10/12/25 11:09 BP 90/60 10/12/25 11:09 Pulse Ox 96 10/12/25 11:09 Oxygen Delivery Method Room Air 10/12/25 11:09 BMI result Body Mass Index 22.6 Tobacco/Smoking Status: Tobacco use Status Tobacco use date assessed 10/12/25 10/12/25 11:06 Patient Tobacco Use Status Never used Tobacco 10/12/25 11:06 e-Cigarette/Vaping Use Never Used 10/12/25 11:06 PHQ-9: PHQ-9 Score PHQ-9: Total score 0 10/12/25 12:02 Depression Screening Interpretation: Negative Thrive Assessment: Date of Thrive Assessment Date Thrive assessed 10/12/25 10/12/25 11:06 Currently or been in a relationship where the following occur: No concerns reported Advance Care Planning discussion: Completed/Scanned Date of discussion: 10/12/25 Who was present: patient Forms completed: Health Care Proxy Time spent: 16-45 minutes Actual minutes spent: 3 Const General: no acute distress and alert Orientation/consciousness: patient oriented x3 HENMT Face and sinus: Yes face symmetric Mouth: moist mucous membranes Eyes General: appearance normal, both eyes and all related structures Neck Neck: Yes full ROM, Yes no lymphadenopathy and Yes supple Thyroid: Thyroid normal Chest Breast/axilla palpation: normal palpation of the breasts Resp Auscultation: clear to auscultation bilaterally Cardio Other: S1-S2 present, regular rate and rhythm GI Inspection: Yes normal to inspection Palpation (GI): Soft to palpation, nontender, no guarding and no masses Auscultation: normal bowel sounds General: Yes no CVA tenderness and Yes deferred Back/Spine/Pelvis Back: no CVA tenderness and No back tenderness Skin General skin exam: no rashes or lesions noted Neuro General: patient oriented x3, gait normal, tone normal, moves all extremities, Normal light touch and pain sensation, no focal motor deficits and CN's II-XI intact bilaterally Cranial nerves: Yes Normal hearing present Speech: No Abnormal speech present Gait exam (Neuro): Normal gait present Extrem General: Yes full ROM, Yes no joint enlargement, Yes no clubbing, cyanosis or edema, Yes no calf tenderness and Yes normal gait Psych Appearance: grossly normal and well kempt Mental Status: mental status grossly normal Speech and movement: Normal speech and movement present Coding Level of Care Code Est Pt Prev Care 40-64y(20241) Diagnoses Annual visit for general adult medical examination with abnormal findings Z00.01 Cervical cancer screening Z12.4 Postmenopausal syndrome N95.1 Osteopenia of multiple sites M85.89 Advance directive discussed with patient Z71.89 Additional Codes DIAMOND-7 Assessment Billing - DIAMOND-7 Assessment Tool: DIAMOND-7 Assessment 42127 ([id number]) PHQ-9 - 91141 - PHQ-9 Billing: Yes ([id number]) Vital Signs *Quality* - Advance Care Planning discussion: Completed/Scanned ([id number]) Vital Signs *Quality* - Time spent: 16-45 minutes ([id number]) Assessment & Plan Assessment & Plan (1) Annual visit for general adult medical examination with abnormal findings: Code(s): Z00.01 - Encounter for general adult medical examination with abnormal findings Plan: Will check appropriate labs. Recommended dental visit every 6 months and regular eye exams, at least every 2 years. Take adequate calcium in diet and vitamin-D 3 at 2000 IU per cap once a day, in addition to weight-bearing exercises to help maintain good muscle tone and weight control. Instructed to do self-breast exam, and up-to-date with her screening mammogram , scheduled for additional views of right breast. Flu vaccine given today. Up-to-date with her screening colonoscopy (2) Cervical cancer screening: Code(s): Z12.4 - Encounter for screening for malignant neoplasm of cervix Plan: A referral will be placed for an MATERIAL ENGINEER visit at [facility] for a Pap smear and evaluation of postmenopausal symptoms; Dr. Reed was recommended. The patient was advised that it may take time to secure an appointment. (3) Postmenopausal syndrome: Code(s): N95.1 - Menopausal and female climacteric states Plan: A referral will be placed for an MATERIAL ENGINEER visit at [facility]INE[facility] for a Pap smear and evaluation of postmenopausal symptoms; Dr. Reed was rec ommended. The patient was advised that it may take time to secure an appointment. (4) Osteopenia of multiple sites: Code(s): M85.89 - Other specified disorders of bone density and structure, multiple sites Category: Medical Plan: A bone density scan has been ordered. The patient will call the imaging center to try and schedule it on the same day as her mammogram (November 22). She was counseled on the importance of consistent intake of calcium and vitamin D. (5) Advance directive discussed with patient: Code(s): Z71.89 - Other specified counseling Plan: Initiated the conversation about Advanced Directives. Advanced Directives help patients prepare for current and future decisions about their medical treatment and place of care. Discussed with patient that it is a process where a patients current condition and prognosis are reviewed, their wishes for information regarding their illness are elicited, and likely medical dilemmas are presented and options discussed. Healthcare proxy form completed today. The form can be amended as needed, reviewed yearly and make changes as needed Orders: Orders Lipid Panel 10/12/25 E89.40 - Asymptomatic postprocedural ovarian failure, M85.89 - Other specified disorders of bone density and structure, multiple sites, Z13.1 - Encounter for screening for diabetes mellitus, Z13.220 - Encounter for screening for lipoid disorders Basic Metabolic Panel Fasting 10/12/25 E89.40 - Asymptomatic postprocedural ovarian failure, M85.89 - Other specified disorders of bone density and structure, multiple sites, Z13.1 - Encounter for screening for diabetes mellitus, Z13.220 - Encounter for screening for lipoid disorders Aspartate Amino Transferase 10/12/25 E89.40 - Asymptomatic postprocedural ovarian failure, M85.89 - Other specified disorders of bone density and structure, multiple sites, Z13.1 - Encounter for screening for diabetes mellitus, Z13.220 - Encounter for screening for lipoid disorders Alanine Aminotransferase 10/12/25 E89.40 - Asymptomatic postprocedural ovarian failure, M85.89 - Other specified disorders of bone density and structure, multiple sites, Z13.1 - Encounter for screening for diabetes mellitus, Z13.220 - Encounter for screening for lipoid disorders Vitamin D 25-OH Total 10/12/25 E89.40 - Asymptomatic postprocedural ovarian failure, M85.89 - Other specified disorders of bone density and structure, multiple sites, Z13.1 - Encounter for screening for diabetes mellitus, Z13.220 - Encounter for screening for lipoid disorders Complete Blood Count Auto Diff 10/12/25 E89.40 - Asymptomatic postprocedural ovarian failure, M85.89 - Other specified disorders of bone density and structure, multiple sites, Z13.1 - Encounter for screening for diabetes mellitus, Z13.220 - Encounter for screening for lipoid disorders Influenza [id number] Immunization 10/12/25 Z23 - Encounter for immunization XR DEXA axial skeleton 10/12/25 E89.40 - Asymptomatic postprocedural ovarian failure, M85.89 - Other specified disorders of bone density and structure, multiple sites Referrals MATERIAL ENGINEER Referral E89.40 - Asymptomatic postprocedural ovarian failure, N95.1 - Menopausal and female climacteric states, Z12.4 - Encounter for screening for malignant neoplasm of cervix Medications: New Fluarix [id number] (PF) (flu vac ts (6mos up)-PF) 0.5 mL IM ONCE 0.5 mL 0RF NS Z23 - Encounter for immunization
[2025-10-12 11:09] VITALS: BP 90/60; PULSE 62; RESP 16; TEMP 36.6; O2SAT 96; BMI 22.6
--- OUTSIDE RECORDS SUMMARY | 2025-10-12 13:02 | XMS_ITS | Clinical Summary ---
Author Organization [facility] Address [address] [place] [address] Care Team Providers Care Hand Washer Name Role Phone Lory Damon MD Primary [...] Depression Screening 12/02/2024 COVID-19 Vaccine (1 - 2024-2 6 season) 2025 Influenza Vaccine (#1) 2025 Cholesterol [...] age to complete this topic Care Teams Hand Washer Relationship Specialty Start Date End Date Lory Damon MD [address] [place] [address] PCP - General 02/04/23
--- OUTSIDE RECORDS SUMMARY | 2025-10-12 13:02 | XMS_ITS | Clinical Summary ---
Author Organization [facility] Address [address] [place] [address] Care Team Providers Care Medicine And Health Service Manager Name Role Phone Lory Damon MD Primary Care Provider [phone]- [phone] Allergies Active Allergy Reactions Criticality Noted Date [...] Decision Thoroughly Discussed with: Patient Care Teams Medicine And Health Service Manager Relationship Specialty Start Date End Date Lory Damon MD [address] [place] [address] PCP - General Internal Medicine 03/18/23
== END 2025-10-12 12:21 | disposition home or self-care (01) ==
LOC: HO.HMCC 10:54
PROVIDERS: PCP Internal Medicine; Visit Provider Internal Medicine
DX: Z00.01 Encounter for general adult medical examination with abnormal findings (principal); Z12.4 Encounter for screening for malignant neoplasm of cervix; N95.1 Menopausal and female climacteric states; M85.89 Other specified disorders of bone density and structure, multiple sites; Z71.89 Other specified counseling

== ENCOUNTER → 2025-10-12 10:53 | Outpatient (BNVA) | payer OTHER, SELFPAY | PROVIDERS: PCP Internal Medicine; Visit Provider Internal Medicine | DX: Z00.01 Encounter for general adult medical examination with abnormal findings (principal); Z12.4 Encounter for screening for malignant neoplasm of cervix; Z71.89 Other specified counseling; N95.1 Menopausal and female climacteric states; M85.89 Other specified disorders of bone density and structure, multiple sites | CPT/HCPCS: 96127; 99396; 99497 ==

== ENCOUNTER 2025-11-01 10:21 | Outpatient (REF) | payer OTHER, SELFPAY ==
--- OUTSIDE RECORDS SUMMARY | 2025-11-01 12:56 | XMS_ITS | Clinical Summary ---
Author Organization [facility] Address [address] [place] [address] Care Team Providers Care Setter Up Name Role Phone Lory Damon MD Primary Care Provider [phone] Allergies Active Allergy Reactions Criticality Noted Date Comments Sulfamethoxazole-Trimethoprim Hives 2022 Sulfa Antibiotics Hives 02/05/2023 Medications Medication Sig Dispensed Refills Start Date End Date Status sertraline (ZOLOFT) 100 MG tabletIndications:Gamaliel or Depressive Disorder Take 2 tablets (200 mg total) by mouth daily. 60 tablet 0 03/16/2023 Active Melatonin 10 MG TABSIndications:Insom italia Take 10 mg by mouth every night [...] Advance Directives For more information, please contact: [phone] Latest Code Status on File Code Status Date Activated Date Inactivated Comments Full Code 02/05/2023 12:51 PM 03/15/2023 5:32 PM This code status was ascertained in the following way: per unit protocol. Code Status History Code Status Date Activated Date Inactivated Comments Full Code 02/05/2023 12:51 PM 02/05/2023 12:51 PM Per u nit protocol Care Teams Setter Up Relationship Specialty Start Date End Date Lory Damon MD [address] [place] [address] PCP - General Internal Medicine 02/04/23
--- OUTSIDE RECORDS SUMMARY | 2025-11-01 12:56 | XMS_ITS | Clinical Summary ---
Author Organization [facility] Address [address] [place] [address] Care Team Providers Care Handle Bar Assembler Name Role Phone Lory Damon MD Primary Care Provider [phone]- [phone] Allergies Active Allergy Reactions Criticality Noted Date [...] Decision Thoroughly Discussed with: Patient Care Teams Handle Bar Assembler Relationship Specialty Start Date End Date Lory Damon MD [address] [place] [address] PCP - General Internal Medicine 03/18/23
--- OUTSIDE RECORDS SUMMARY | 2025-11-01 12:56 | XMS_ITS | Clinical Summary ---
Author Organization [facility] Address [address] [place] [address] Care Team Providers Care Tufter Name Role Phone Lory Damon MD Primary [...] age to complete this topic Care Teams Tufter Relationship Specialty Start Date End Date Lory Damon MD [address] [facility] [place] [address] PCP - General 02/04/23
[2025-11-01 13:23] LABS: MANUAL DIFF FLAG NO
[2025-11-01 13:34] LABS: Hematocrit 39.4 % (37.0-47.0); Hemoglobin 13.0 g/dl (12.0-16.0); Imm Gran Abs Auto 0.01 X10*3/uL (0.00-0.03); Imm Gran Pct Auto 0.3 % (0.0-0.4); Lymphocytes Absolute Auto 1.5 X10*3/uL (1.2-4.9); Mean Corpuscular HGB Conc 33.0 g/dl (31.0-35.0); Mean Corpuscular Hemoglobin 30.6 pg (27.0-33.0); Mean Corpuscular Volume 92.7 fL (80.0-98.0); NRBC Abs Auto 0.000 X10*3/uL (0.0-0.012); NRBC Pct Auto 0.0 /100WBC (0.0-0.2); Platelet Count 211 X10*3/uL (160-400); Red Blood Count 4.25 X10*6/uL (4.20-5.50); White Blood Count 3.9 X10*3/uL (4.8-10.8)
[2025-11-01 14:10] LABS: Alanine Aminotransferase 15 U/L (0-31); Anion Gap 10 (12-20); Aspartate Amino Transferase 23 U/L (5-31); Blood Urea Nitrogen 16 mg/dL (9-16); Calcium 9.8 mg/dL (8.4-10.2); Carbon Dioxide 27 mmol/L (22-29); Chloride 108 mmol/L (96-108); Cholesterol 255 mg/dL (<200); Estimated Glomerular Filt Rate > 60; HDL Cholesterol 73 mg/dL (>40); Potassium 4.4 mmol/L (3.3-5.1); Sodium 141 mmol/L (135-145); Triglycerides 82 mg/dL (<150)
== END 2025-11-01 10:22 | disposition home or self-care (01) ==
LOC: HO.HMGCLDS 10:21
PROVIDERS: PCP Internal Medicine; Visit Provider Internal Medicine
DX: Z13.220 Encounter for screening for lipoid disorders (principal); Z13.1 Encounter for screening for diabetes mellitus; M85.89 Other specified disorders of bone density and structure, multiple sites; E89.40 Asymptomatic postprocedural ovarian failure
CPT/HCPCS: 36415; 80048; 80061; 82306; 84450; 84460; 85025

== ENCOUNTER → 2025-11-22 12:30 | Outpatient (BNV) | payer OTHER, SELFPAY | PROVIDERS: PCP Internal Medicine; Visit Provider Radiology Body Imaging | DX: R92.8 Other abnormal and inconclusive findings on diagnostic imaging of breast (principal) | CPT/HCPCS: 76642; 77061; 77065 ==

== ENCOUNTER 2025-11-22 12:35 | Outpatient (REF) | payer OTHER, SELFPAY ==
--- NOTE | ~2025-11-22 | US_ITS ---
EXAMINATION(S): 1. MM DIAGNOSTIC DIGITAL BREAST TOMOSYNTHESIS, RIGHT 2. TARGETED ULTRASOUND OF THE RIGHT BREAST CLINICAL INFORMATION: Callback from screening for right breast asymmetry in the superior breast middle depth on the MLO view. COMPARISON: Comparison made to multiple prior, most recent September 25, 2024, and most remote August 11, 2018. TECHNIQUE: Digital breast tomosynthesis is performed in full-field ML 90 degrees and MLO along with computer-aided detection (CAD). Synthesized 2D images are generated from the tomosynthesis. Spot compression tomosynthesis were obtained. FINDINGS: BREAST COMPOSITION: The breasts are heterogeneously dense, which may obscure small masses. RIGHT BREAST: Pliable asymmetry in the upper breast. On today's images, the local parenchyma has similar appearance to multiple prior studies as far back as 2017. Therefore, findings likely represented overlapping fibroglandular breast tissue. Targeted ultrasound of the right breast was performed at the location of the mammographic finding. Survey performed along the 11:00-1:00 axis did not reveal suspicious sonographic findings. US/US Breast RT Limited Mamm Only IMPRESSION: RIGHT BREAST: Negative, no evidence of malignancy. Normal interval follow-up is recommended in 12 months. ASSESSMENT: BI-RADS: Category 1: Negative RECOMMENDATION: 1 year F/U Results were provided to the patient at time of visit by the technologist. This patient's information was entered into a reminder system with a target due date for their next mammogram. Electronically signed by: Oly Danielle MD 11/22/2025 01:16 PM [facility]
--- OUTSIDE RECORDS SUMMARY | 2025-11-22 15:43 | XMS_ITS | Clinical Summary ---
Author Organization [facility] Address [address] [place] [address] Care Team Providers Care Retail Assistant Manager Name Role Phone Lory Damon MD [...] on file Sexual Orientation Not on file Plan of Treatment Health Maintenance Due Date [...] age to complete this topic Care Teams Retail Assistant Manager Relationship Specialty Start Date End Date Lory Damon MD [address] [place] [address] PCP - General 02/04/23
--- OUTSIDE RECORDS SUMMARY | 2025-11-22 15:43 | XMS_ITS | Clinical Summary ---
Author Organization [facility] Prior to 05/01/25 Address [address] [place] [address] Care Team Providers Care Nurse Case Management Name Role Phone Lory Damon MD Primary Care Provider [phone] Allergies Active Allergy Reactions Criticality Noted Date [...] 01/29/2022, 03/27/2021, 03/03/2021 Influenza Vaccine (#1) 2025 Pneumococcal Vaccine (1 of 1 - PCV) 2026 RSV Adult > 60+ Yrs or (1 [...] Advance Directives For more information, please contact: [phone] Latest Code Status on File Code Status Date Activated Date Inactivated Comments Full Code 02/05/2023 12:51 PM 03/15/2023 5:32 PM This code status was ascertained in the following way: per unit protocol. Code Status History Code Status Date Activated Date Inactivated Comments Full Code 02/05/2023 12:51 PM 02/05/2023 12:51 PM Per u nit protocol Care Teams Nurse Case Management Relationship Specialty Start Date End Date Lory Damon MD [address] [place] [address] PCP - General Internal Medicine 02/04/23
--- OUTSIDE RECORDS SUMMARY | 2025-11-22 15:43 | XMS_ITS | Clinical Summary ---
Author Organization [facility] Address [address] [place] [address] Care Team Providers Care Off Track Betting Manager Name Role Phone Lory Damon MD Primary Care Provider [phone]- [phone] Allergies Active Allergy Reactions Criticality Noted Date [...] Decision Thoroughly Discussed with: Patient Care Teams Off Track Betting Manager Relationship Specialty Start Date End Date Lory Damon MD [address] [place] [address] PCP - General Internal Medicine 03/18/23
== END 2025-11-22 12:36 | disposition home or self-care (01) ==
LOC: HO.MAMMO 12:35
PROVIDERS: PCP Internal Medicine; Visit Provider Internal Medicine
DX: N64.89 Other specified disorders of breast (principal)
CPT/HCPCS: 76642; 77061; 77065